=== PATIENT | female | born 1965 | race Caucasian/White ===

== ENCOUNTER 2017-12-09 07:27 | Emergency (ER) | payer BC, OTHER ==
--- OUTSIDE RECORDS SUMMARY | 2017-12-09 07:30 | XMS REPORT | Clinical Summary ---
:1965 Author Organization [facility] Address [address] [place] [address] Phone Care Team Providers Name Role Phone Unavailable Primary Care Provider Unavailable Allergies Active Allergy Reactions Severity Noted Date Comments Tramadol Nausea And Vomiting 08/23/2016 Current Medications Prescription Sig. Disp. Refills Start Date End Date Status levothyroxine Take 75 mcg by Active (SYNTHROID, mouth Every LEVOTHROID) 75 MCG morning on an tablet empty stomach. calcitriol Take 0.25 mcg Active (ROCALTROL) 0.25 MCG by mouth 2 capsule (two) times daily. sertraline (ZOLOFT) Take 25 mg by Active 25 MG tablet mouth daily. furosemide (LASIX) 40 Take 40 mg by Active MG tablet mouth daily. amLODIPine (NORVASC) Take 10 mg by 11/10/2017 Discontinued 10 MG tablet mouth daily. calcium Take 2 tablets 11/10/2017 Discontinued carbonate-vitamin D3 by mouth daily. (CALCIUM-VITAMIN D) 500 mg(1,250mg) -200 unit per tablet ALPRAZolam (XANAX) Take 0.25 mg by 11/10/2017 Discontinued 0.25 MG tablet mouth as needed for Sleep or Anxiety. b complex vitamins Take 1 tablet 11/10/2017 Discontinued tablet by mouth daily. Active Problems Patient Care Coordination Note WRAPPER HAND- Dr. 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 ESRD (end stage renal disease) ([facility]) 11/10/2017 Patient awaiting renal transplant 11/10/2017 Chronic kidney disease, stage 5 ([facility]) 08/23/2016 Pre-transplant evaluation for chronic kidney disease 08/23/2016 Essential hypertension 08/23/2016 Hyperparathyroidism ([facility]) 08/23/2016 S/P parathyroidectomy (HCC) 08/23/2016 Recurrent UTI 08/23/2016 Current smoker 10/22/2014 Overview: SNOMED/[place] [id number] Hyperparathyroidism, unspecified (HCC) 10/21/2014 Encounters Date Type Specialty Care Team Description 11/10/2017 Orders Only Transplant Naif, Patient awaiting renal Hepatology Bhamidipati transplant MD Roger 11/10/2017 Evaluation Transplant Naif, Pre-transplant Bhamidipati evaluation for chronic MD Roger kidney disease (Primary Dx);Patient awaiting renal transplant;ESRD (end stage renal disease) (HCC);Hyperparathyroidi sm (HCC);S/P parathyroidectomy (HCC);Recurrent UTI;Secondary hypertension due to renal disease 10/21/2017 Orders Only Lab O'Tony, Patient awaiting renal Marii Bowen MD transplant 09/22/2017 Orders Only Lab O'Tony, Patient awaiting renal Marii Bowen MD transplant 09/21/2017 Documentation Transplant MelaraSaharaiam 09/01/2017 Abstract Transplant Melara, Meriam 07/21/2017 Orders Only Lab Patient awaiting renal transplant 05/27/2017 Orders Only Lab O'Tony, Patient awaiting renal Marii Bowen MD transplant 04/29/2017 Orders Only Lab O'Tony, Patient awaiting renal Marii Bowen MD transplant 04/21/2017 Orders Only Transplant Maria Esther Branham RN Patient awaiting renal transplant (Primary Dx) 03/31/2017 Orders Only Lab Naif, Patient awaiting renal Bhamidipati transplant (Primary Dx) MD Roger 02/23/2017 Orders Only Lab Naif, Awaiting organ Bhamidipati transplant (Primary Dx) MD Roger 01/06/2017 [facility] Charge Visit Transplant Bari Disla MD Provider, [facility] Registry Generic 01/05/2017 Documentation Transplant Trevon Melara 12/31/2016 Documentation Transplant Katia Davidson RN 12/31/2016 Abstract Transplant Nohemi Pastrana RN 12/28/2016 Telephone Transplant Nohemi Pastrana RN 12/22/2016 Ancillary Orders Lab Bari Disla MD 12/22/2016 Ancillary Orders Lab Bari Disla MD 12/22/2016 Orders Only Transplant Nohemi Pastrana RN Pre-transplant evaluation for chronic kidney disease (Primary Dx);Anemia of renal disease 12/08/2016 Abstract Transplant Viviana Vaughan after 12/08/2016 Family History Medical History Relation Name Comments Hypertension Brother Cancer Brother Testicular - cured Cancer Father Bladder - in remission Hypertension Father Heart attack Maternal Grandmother Breast cancer Mother from it Relation Name Status Comments Brother Alive Brother Brother Father Alive Maternal Grandmother Mother Social History Tobacco Use Types Packs/Day Years Used Date Current Every Day Smoker Cigarettes 1 30 Smokeless Tobacco: Never Used Tobacco Cessation: Counseling Given: Yes Alcohol Use Drinks/Week oz/Week Comments No Sex Assigned at Date Recorded Not on file Last Filed Vital Signs Vital Sign Reading Time Taken Blood Pressure 153/83 11/10/2017 12:16 PM CDT Pulse 64 11/10/2017 12:16 PM CDT Temperature 36.4 C (97.5 F) 11/10/2017 12:16 PM CDT Respiratory Rate 18 11/10/2017 12:16 PM CDT Oxygen Saturation - - Inhaled Oxygen Concentration - - Weight 89.6 kg (197 lb 8 oz) 11/10/2017 12:16 PM CDT Height 166.5 cm (5' 5.55") 11/10/2017 12:16 PM CDT Body Mass Index 32.32 11/10/2017 12:16 PM CDT Plan of Treatment Health Maintenance Due Date Last Done Comments INFLUENZA VACCINE 01/16/2018 Results Flow PRA Class II (11/10/2017 10:43 AM)Only the most recent of6 resultswithin the time period is included. Component Value Ref Range Flow Class II Percent Positive 16 Flow Class Report Comments Specimen Performing Laboratory Blood [facility] HLA TESTING [facility] [address], : [id number], CLIA#[id number] CAP#[id number] [facility] [address] Narrative Disclaimer: This test was developed and its performance characteristics determined by the [facility] Laboratory. It has not been cleared or approved by the U.S. Food and Drug Administration. The FDA has determined that such clearance or approval is not necessary. This test is used for clinical purposes. It should not be regarded as investigational or for research. This laboratory is certified under the Clinical Laboratory Improvement Amendments of 1988 (CLIA-88) as qualified to perform high complexity clinical laboratory testing. Flow PRA Class I (11/10/2017 10:43 AM)Only the most recent of6 resultswithin the time period is included. Component Value Ref Range Flow Class I Percent Positive 0 Flow Class Report Comments Specimen Performing Laboratory Blood [facility] HLA TESTING [place], [place]: [id number], CLIA#[id number] CAP#[id number] [place] [address] Narrative Disclaimer: This test was developed and its performance characteristics determined by the [facility] Laboratory. It has not been cleared or approved by the U.S. Food and Drug Administration. The FDA has determined that such clearance or approval is not necessary. This test is used for clinical purposes. It should not be regarded as investigational or for research. This laboratory is certified under the Clinical Laboratory Improvement Amendments of 1988 (CLIA-88) as qualified to perform high complexity clinical laboratory testing. AB Specificity Class II (11/10/2017 10:43 AM)Only the most recent of9 resultswithin the time period is included. Component Value Ref Range AB Specificity Class II DR:4 AB Specificity Titr Class Report MFIs > 4000 Specimen Performing Laboratory Blood [facility] HLA TESTING [place], [place]: [id number], CLIA#[id number] CAP#[id number] [place] [address] Narrative Disclaimer: This test was developed and its performance characteristics determined by the [facility] Laboratory. It has not been cleared or approved by the U.S. Food and Drug Administration. The FDA has determined that such clearance or approval is not necessary. This test is used for clinical purposes. It should not be regarded as investigational or for research. This laboratory is certified under the Clinical Laboratory Improvement Amendments of 1988 (CLIA-88) as qualified to perform high complexity clinical laboratory testing. AB Specificity Class I (07/21/2017 2:17 PM)Only the most recent of5 resultswithin the time period is included. Component Value Ref Range AB Specificity Class I NO CLASS I ANTIBODY DETECTED WITH MFIs > 4000 AB Specificity Titr Class Report Specimen Performing Laboratory Blood [facility] HLA TESTING [place], [place]: [id number], CLIA#[id number] CAP#[id number] [place] [address] Flow PRA Class I and II (03/31/2017 10:23 AM)Only the most recent of2 resultswithin the time period is included. Component Value Ref Range Date of Serum 014564 Serum# [id number] Flow PRA Class I and II See Scanned Report Specimen Performing Laboratory Blood [facility] IMMUNE EVALUATION LAB [facility] [address], [place]:[address] [address] Occult blood, stool (12/23/2016 1:23 AM)Only the most recent of2 resultswithin the time period is included. Component Value Ref Range Occult blood Negative Negative Specimen Performing Laboratory Stool [facility] [address] [address] after 12/08/2016
--- OUTSIDE RECORDS SUMMARY | 2017-12-09 07:30 | XMS REPORT ---
:1965 Author Organization [facility] Address [address] [place] [address] [address]. [address] [place] [address] Care Team Providers Name Role Phone ADWOA CLARKE Unavailable Unavailable Problems This patient has no known problems. Allergies, Adverse Reactions, Alerts This patient has no known allergies or adverse reactions. Medications This patient has no known medications. Results Test Description Test Time Test Comments Text Results Atomic Results Result Comments FLOW PRA CLASS I AND II 2017-04-08 09:48:00 Test Item Value Reference Range Comments DATE OF SERUM (BEAKER) (test iuwk=8551) [id number] SERUM # (BEAKER) (test ebzy=9051) [id number] FLOW PRA CLASS I AND II (test utli=3129) See Scanned Report AB SPECIFICITY CLASS [id number] 07:35:00 Test Item Value Reference Range Comments DATE OF SERUM (BEAKER) (test btbb=2622) [id number] SERUM # (BEAKER) (test ndzf=1346) [id number] AB SPECIFICITY CLASS I (BEAKER) (test dihy=9789) AB SPECIFICITY CLASS [id number] 07:35:00 Test Item Value Reference Range Comments DATE OF SERUM (BEAKER) (test tdut=2732) [id number] SERUM # (BEAKER) (test bozs=6220) [id number] AB SPECIFICITY CLASS II (BEAKER) (test See Scanned Report uwpl=2529) FLOW PRA CLASS I AND [id number] 11:13:00 Test Item Value Reference Range Comments DATE OF SERUM (BEAKER) (test jsyx=5534) [id number] SERUM # (BEAKER) (test ytee=2606) 359008 FLOW PRA CLASS I AND II (test nlvf=8029) See Scanned Report AB SPECIFICITY CLASS [id number] 11:57:00 Test Item Value Reference Range Comments DATE OF SERUM (BEAKER) (test rgwm=2458) [id number] SERUM # (BEAKER) (test cyvj=6624) [id number] AB SPECIFICITY CLASS II (BEAKER) (test See Scanned Report hfdb=4745) AB SPECIFICITY CLASS [id number] 11:57:00 Test Item Value Reference Range Comments DATE OF SERUM (BEAKER) (test iyjh=4374) [id number] SERUM # (BEAKER) (test dkde=6018) 434437 AB SPECIFICITY CLASS I (BEAKER) (test jemz=4483) OCCULT BLOOD, [id number] 01:23:00 Test Item Value Reference Range Comments FECAL OCCULT BLOOD (BEAKER) (test xuce=015) Negative Negative OCCULT BLOOD, [id number] 01:22:00 Test Item Value Reference Range Comments FECAL OCCULT BLOOD (BEAKER) (test gpho=024) Negative Negative FLOW PRA CLASS I AND [id number] 22:58:00 Test Item Value Reference Range Comments DATE OF SERUM (BEAKER) (test zlvk=5425) 873608 SERUM # (BEAKER) (test txkx=9563) [id number] FLOW PRA CLASS I AND II (test wiqo=8956) See Scanned Report HLA [id number] 20:21:00 Test Item Value Reference Range Comments HLA RESULT (BEAKER) (test usrs=2135) See Scanned Report HLA-A AG1 (BEAKER) (test oktc=1221) HLA-A AG2 (BEAKER) (test rnki=0990) HLA-B AG1 (BEAKER) (test wkrz=0388) HLA-B AG2 (BEAKER) (test kbkd=7923) HLA-C AG1 (BEAKER) (test vytv=5422) HLA-C AG2 (BEAKER) (test zppt=8042) HLA-DR AG1 (BEAKER) (test pfdd=9031) HLA-DR AG2 (BEAKER) (test vrir=9136) HLA-DQ AG1 (BEAKER) (test qjdw=0207) HLA-DQ AG2 (BEAKER) (test vwgo=0584) HLA-DRW (BEAKER) (test aveh=0081) VARICELLA ZOSTER ANTIBODY, [id number] 14:57:00 Test Item Value Reference Range Comments VARICELLA ZOSTER IGG (AL) (BEAKER) (test chvz=5732) 2.0 Al VARICELLA ZOSTER RESULT INTERPRETATIONS: <=0.8 Al Nonreactive: Presumed non-immune to VZV 0.9-1.0 Al Equivocal >=1.1 Al Reactive: Presumed immune to VZVCYTOMEGALOVIRUS ANTIBODY, [id number] 14:54:00 Test Item Value Reference Range Comments CYTOMEGALOVIRUS IGG ANTIBODY (BEAKER) (test Positive fsav=622) CYTOMEGALOVIRUS ANTIBODY, [id number] 14:54:00 Test Item Value Reference Range Comments CYTOMEGALOVIRUS IGM ANTIBODY (BEAKER) (test Negative sqbo=813) EBV-VCA ANTIBODY, [id number] 14:54:00 Test Item Value Reference Range Comments [place] VCA IGG (BEAKER) (test fmrl=422) Positive EBV-VCA ANTIBODY, [id number] 14:54:00 Test Item Value Reference Range Comments [place] VCA IGM (BEAKER) (test gpaz=379) Negative [id number] 12:57:00 Test Item Value Reference Range Comments RPR SCREEN (BEAKER) (test tkoy=725) Nonreactive Nonreactive URINE [id number] 12:18:00 Test Item Value Reference Range Comments CULTURE (BEAKER) (test aaga=3171) No growth HEMOGLOBIN [id number] 11:58:00 Test Item Value Reference Range Comments HEMOGLOBIN A1C (BEAKER) (test qlhs=783) 5.2 % 4.3-6.1 HEPATITIS B SURFACE [id number] 10:42:00 Test Item Value Reference Range Comments HEPATITIS B SURFACE ANTIBODY (BEAKER) (test < mIU/mL <8.0 iasn=458) HEPATITIS B SURFACE [id number] 10:38:00 Test Item Value Reference Range Comments HEPATITIS B SURFACE ANTIGEN (2) (BEAKER) (test Nonreactive Nonreactive tied=7859) HEPATITIS B CORE ANTIBODY, [id number] 10:38:00 Test Item Value Reference Range Comments HEPATITIS B CORE IGM ANTIBODY (BEAKER) (test Nonreactive Nonreactive rmeb=243) HEPATITIS C [id number] 10:38:00 Test Item Value Reference Range Comments HEPATITIS C ANTIBODY (BEAKER) (test cuge=488) Nonreactive Nonreactive HIV-1 ANTIGEN WITH HIV-1/2 [id number] 10:38:00 Test Item Value Reference Range Comments HIV-1 ANTIGEN WITH HIV 1\T\2 ANTIBODY (2) Nonreactive Nonreactive (BEAKER) (test akga=4970) COMPREHENSIVE METABOLIC [id number] 10:32:00 Test Item Value Reference Range Comments TOTAL PROTEIN (BEAKER) 7.9 gm/dL 6.0-8.3 (test yxdv=744) ALBUMIN (BEAKER) (test 4.1 g/dL 3.5-5.0 wyxr=7983) ALKALINE PHOSPHATASE 70 U/L 40-150 (BEAKER) (test asaj=353) BILIRUBIN TOTAL (BEAKER) 0.5 mg/dL 0.2-1.2 (test txsi=622) SODIUM (BEAKER) (test 139 meq/L 136-145 clwe=508) POTASSIUM (BEAKER) (test 3.9 meq/L 3.5-5.1 cbnc=834) CHLORIDE (BEAKER) (test 101 meq/L 98-107 ylum=648) CO2 (BEAKER) (test 26 meq/L 22-29 ssac=849) BLOOD UREA NITROGEN 21 mg/dL 7-21 (BEAKER) (test kyhc=072) CREATININE (BEAKER) (test 3.93 mg/dL 0.57-1.25 cyhy=983) GLUCOSE RANDOM (BEAKER) 85 mg/dL 70-105 (test rido=012) CALCIUM (BEAKER) (test 9.3 mg/dL 8.4-10.2 zirb=488) AST (SGOT) (BEAKER) (test 22 U/L 5-34 drcq=441) ALT (SGPT) (BEAKER) (test 14 U/L 6-55 xprm=791) EGFR (BEAKER) (test 12 mL/min/1.73 sq m ESTIMATED GFR IS NOT puax=1182) ACCURATE CREATININE CLEARANCE IN PREDICTING GLOMERULAR FILTRATION RATE. ESTIMATED GFR IS NOT APPLICABLE FOR DIALYSIS PATIENTS. URINALYSIS W/ [id number] 10:22:00 Test Item Value Reference Range Comments COLOR (BEAKER) (test mahf=996) Light Yellow CLARITY (BEAKER) (test glfo=536) Clear SPECIFIC GRAVITY UA (BEAKER) (test sqlf=580) 1.003 1.001-1.035 PH UA (BEAKER) (test jahr=149) 7.5 5.0-8.0 PROTEIN UA (BEAKER) (test plzv=502) 30 mg/dL Negative GLUCOSE UA (BEAKER) (test hdra=778) Negative Negative KETONES UA (BEAKER) (test qnie=116) Negative Negative BILIRUBIN UA (BEAKER) (test jmip=588) Negative Negative BLOOD UA (BEAKER) (test hszq=412) Negative Negative NITRITE UA (BEAKER) (test pkzc=902) Negative Negative LEUKOCYTE ESTERASE UA (BEAKER) (test tsrt=647) Negative Negative UROBILINOGEN UA (BEAKER) (test kzne=152) 0.2 mg/dL 0.2-1.0 RBC UA (BEAKER) (test ehlu=498) 0 /HPF WBC UA (BEAKER) (test mbob=450) < /HPF MUCUS (BEAKER) (test iarw=6941) Rare SQUAMOUS EPITHELIAL (BEAKER) (test cwke=071) < /HPF SOURCE(BEAKER) (test zido=1530) URIC [id number] 10:18:00 Test Item Value Reference Range Comments URIC ACID (BEAKER) (test cmeu=375) 4.0 mg/dL 2.6-7.2 [id number] 10:18:00 Test Item Value Reference Range Comments PHOSPHORUS (BEAKER) (test gjur=997) 4.1 mg/dL 2.3-4.7 LIPID [id number] 10:18:00 Test Item Value Reference Range Comments TRIGLYCERIDES (BEAKER) (test czor=638) 128 mg/dL CHOLESTEROL (BEAKER) (test oibc=097) 164 mg/dL HDL CHOLESTEROL (BEAKER) (test mnus=121) 52 mg/dL LDL CHOLESTEROL CALCULATED (BEAKER) (test 86 mg/dL vqas=383) Triglyceride Reference Range: Low Risk <150 Borderline 150- 199 High Risk 200-499 Very High Risk >=500Cholesterol Reference Range: Low Risk <200 Borderline 200-239 High Risk > 240HDL Cholesterol Reference Range: Low Risk >=60 High Risk <40LDL Cholesterol Reference Range: Optimal <100 Near Optimal 100-129 Borderline 130-159 High 160-189 Very High >=190GAMMA GLUTAMYL TRANSFERASE (GGT)2016-11-24 10:18:00 Test Item Value Reference Range Comments GAMMA GLUTAMYL TRANSFERASE (BEAKER) (test tdqo=245) 18 U/L 9-64 LACTATE DEHYDROGENASE (LDH)2016-11-24 10:18:00 Test Item Value Reference Range Comments LACTATE DEHYDROGENASE (BEAKER) (test nfck=924) 269 U/L 125-220 PTH, [id number] 10:17:00 Test Item Value Reference Range Comments PARATHYROID HORMONE INTACT (BEAKER) (test 4.5 pg/mL 8.5-72.5 xlkr=558) Effective 03/05/2014: Reference Range ChangeNew: 8.5-72.5 Previous: 15.0- 90.0PT/[id number] 10:05:00 Test Item Value Reference Range Comments PROTIME (BEAKER) (test dwtv=803) 12.9 seconds 11.7-14.7 INR (BEAKER) (test bjzy=618) 1.0 <=5.9 PARTIAL THROMBOPLASTIN TIME (BEAKER) (test 34.2 seconds 22.5-36.0 dhas=629) RECOMMENDED COUMADIN/WARFARIN INR THERAPY RANGESSTANDARD DOSE: 2.0 - 3.0 Includes: PROPHYLAXIS forvenous thrombosis, systemic embolization; TREATMENT for venous thrombosis and/or pulmonary embolus.HIGH RISK: Target INR is 2.5-3.5 for patients with mechanical heart valves.CBC W/PLT COUNT & AUTO [id number] 09:56:00 Test Item Value Reference Range Comments WHITE BLOOD CELL COUNT (BEAKER) (test looy=045) 5.9 K/ L 3.5-10.5 RED BLOOD CELL COUNT (BEAKER) (test fpqt=304) 3.42 M/ L 3.93-5.22 HEMOGLOBIN (BEAKER) (test sbiw=653) 11.8 GM/DL 11.2-15.7 HEMATOCRIT (BEAKER) (test lifi=166) 33.7 % 34.1-44.9 MEAN CORPUSCULAR VOLUME (BEAKER) (test hobk=743) 98.5 fL 79.4-94.8 MEAN CORPUSCULAR HEMOGLOBIN (BEAKER) (test 34.5 pg 25.6-32.2 mgtv=979) MEAN CORPUSCULAR HEMOGLOBIN CONC (BEAKER) (test 35.0 GM/DL 32.2-35.5 uvou=386) RED CELL DISTRIBUTION WIDTH (BEAKER) (test 14.5 % 11.7-14.4 rwbx=763) PLATELET COUNT (BEAKER) (test heem=131) 175 K/CU MM 150-450 MEAN PLATELET VOLUME (BEAKER) (test cioh=481) 10.3 fL 9.4-12.3 NUCLEATED RED BLOOD CELLS (BEAKER) (test 0 /100 WBC 0-0 obks=453) NEUTROPHILS RELATIVE PERCENT (BEAKER) (test 63 % lqlf=171) LYMPHOCYTES RELATIVE PERCENT (BEAKER) (test 27 % ftpl=950) MONOCYTES RELATIVE PERCENT (BEAKER) (test 8 % vcvk=130) EOSINOPHILS RELATIVE PERCENT (BEAKER) (test 2 % qwsd=319) BASOPHILS RELATIVE PERCENT (BEAKER) (test 1 % xnmq=851) NEUTROPHILS ABSOLUTE COUNT (BEAKER) (test 3.68 K/ L 1.56-6.13 xugg=438) LYMPHOCYTES ABSOLUTE COUNT (BEAKER) (test 1.55 K/ L 1.18-3.74 bvqq=161) MONOCYTES ABSOLUTE COUNT (BEAKER) (test 0.47 K/ L 0.24-0.36 kwpu=615) EOSINOPHILS ABSOLUTE COUNT (BEAKER) (test 0.10 K/ L 0.04-0.36 nbda=253) BASOPHILS ABSOLUTE COUNT (BEAKER) (test 0.03 K/ L 0.01-0.08 oqtg=105) IMMATURE GRANULOCYTES-RELATIVE PERCENT (BEAKER) 0 % 0-1 (test tcrm=9904)
--- NOTE | 2017-12-09 07:57 | EDPHYS ---
Physician Documentation [facility] Name: Adrianne Bond Age: 52 yrs Sex: Female : 1965 Arrival Date: 12/09/2017 Time: 07:32 Bed 2 Private MD: Lemuel Wisdom ED Physician Chris Estrada HPI: 12/09 07:52 This 52 yrs old Female presents to ER via Ambulatory with complaints of kb Abscess. 07:52 The patient presents with an abscess of the mons pubis. Description: erythematous, kb swollen, warm. Onset: The symptoms/episode began/occurred 5 day(s) ago. Possible cause(s): unknown. Associated signs and symptoms: Pertinent positives: erythema, swelling, Pertinent negatives: discharge, drainage, foreign body sensation, fever, headache, nausea, shortness of breath, vomiting. Modifying factors: the symptoms are alleviated by nothing, the symptoms are aggravated by pressure, touching. Severity of symptoms: At their worst the symptoms were moderate, in the emergency department the symptoms are unchanged. The patient has not experienced similar symptoms in the past. The patient has not recently seen a physician. 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 - Social history:: Smoking status: Patient uses tobacco products, smokes one pack cigarettes per day. - Ebola Screening: : Patient negative for fever greater than or equal to 101.5 degrees Fahrenheit, and additional compatible Ebola Virus Disease symptoms Patient denies exposure to infectious person Patient denies travel to an Ebola-affected area in the 21 days before illness onset No symptoms or risks identified at this time. ROS: 07:52 Constitutional: Negative for fever, chills, and weight loss, Cardiovascular: Negative kb for chest pain, palpitations, and edema, Respiratory: Negative for shortness of breath, cough, wheezing, and pleuritic chest pain, Abdomen/GI: Negative for abdominal pain, nausea, vomiting, diarrhea, and constipation, Back: Negative for injury and pain, MS/Extremity: Negative for injury and deformity, Neuro: Negative for headache, weakness, numbness, tingling, and seizure. 07:52 Skin: Positive for abscess, erythema, swelling, of the mons pubis. Exam: 07:52 Constitutional: This is a well developed, well nourished patient who is awake, alert, kb and in no acute distress. Head/Face: Normocephalic, atraumatic. Chest/axilla: Normal chest wall appearance and motion. Nontender with no deformity. No lesions are appreciated. Cardiovascular: Regular rate and rhythm with a normal S1 and S2. No gallops, murmurs, or rubs. Normal PMI, no JVD. No pulse deficits. Respiratory: Lungs have equal breath sounds bilaterally, clear to auscultation and percussion. No rales, rhonchi or wheezes noted. No increased work of breathing, no retractions or nasal flaring. Abdomen/GI: Soft, non-tender, with normal bowel sounds. No distension or tympany. No guarding or rebound. No evidence of tenderness throughout. MS/ Extremity: Pulses equal, no cyanosis. Neurovascular intact. Full, normal range of motion. Neuro: Awake and alert, GCS 15, oriented to person, place, time, and situation. Cranial nerves II-XII grossly intact. Motor strength 5/5 in all extremities. Sensory grossly intact. Cerebellar exam normal. Normal gait. 07:52 Skin: abscess, that is small, of the mons pubis, with induration. Vital Signs: 07:46 BP 117 / 86; Pulse 77; Resp 16; Pulse Ox 100% on R/A; Weight 90.72 kg; Height 5 ft. 6 ch in. (167.64 cm); Pain 8/10; 08:08 BP 120 / 86; Pulse 74; Resp 16; Temp 98.2; Pulse Ox 99% on R/A; Pain 8/10; ch 07:46 Body Mass Index 32.28 (90.72 kg, 167.64 cm) ch MDM: 07:52 Patient medically screened. kb 07:52 Data reviewed: vital signs, nurses notes. Data interpreted: Pulse oximetry: on room air kb is 100 %. Interpretation: normal. Counseling: I had a detailed discussion with the patient and/or guardian regarding: the historical points, exam findings, and any diagnostic results supporting the discharge/admit diagnosis, the need for outpatient follow up, a family practitioner, a general surgeon, to return to the emergency department if symptoms worsen or persist or if there are any questions or concerns that arise at home. 07:57 ED course: Educated to return for worsening symptoms and/or for I\T\D if abscess becomes kb fluctuant. Verbal understanding received. . Administered Medications: 08:01 Drug: Bactrim (160 mg-800 mg (DS) 1 tablet Route: PO; 08:09 Follow up: Response: No adverse reaction; Marked relief of symptoms 08:01 Drug: KeFLEX 500 mg Route: PO; 08:09 Follow up: Response: No adverse reaction Disposition: 12/09/17 07:57 Discharged to Home. Impression: Cutaneous abscess of groin. - Condition is Stable. - Discharge Instructions: Skin Abscess, [id number]. - Prescriptions for Keflex 500 mg Oral Capsule - take 1 capsule by ORAL route every 8 hours for 10 days; 30 capsule. Bactrim DS 800- 160 mg Oral Tablet - take 1 tablet by ORAL route every 12 hours for 10 days; 20 tablet. - Medication Reconciliation Form, Thank You Letter, Antibiotic Education, Prescription Opioid Use form. - Follow up: Emergency Department; When: As needed; Reason: Worsening of condition. Follow up: Lemuel Wisdom MD; When: 2 - 3 days; Reason: Recheck today's complaints, Continuance of care, Re-evaluation by your physician. Addendum: 12/10/2017 08:16 Co-signature as Attending Physician, Chris Estrada MD I agree with the assessment and w a plan of care. Signatures: Leah Link, MAIKEL-C MAIKEL-Debbie Teresa, Chris Champion RN, ch, MD MD wa Corrections: (The following items were deleted from the chart) 12/09 08:09 07:57 12/09/2017 07:57 Discharged to Home. Impression: Cutaneous abscess of groin. ch Condition is Stable. Forms are Medication Reconciliation Form, Thank You Letter, Antibiotic Education, Prescription Opioid Use. Follow up: Emergency Department; When: As needed; Reason: Worsening of condition. Follow up: Lemuel Wisdom; When: 2 - 3 days; Reason: Recheck today's complaints, Continuance of care, Re-evaluation by your physician. kb
--- NOTE | 2017-12-09 07:57 | ER ---
Nurse's Notes [facility] Name: Adrianne Bond Age: 52 yrs Sex: Female : 1965 Arrival Date: 12/09/2017 Time: 07:32 Bed 2 Private MD: Lemuel Wisdom Diagnosis: Cutaneous abscess of groin Presentation: 12/09 07:42 Presenting complaint: Patient states: quarter sized boil to my L upper labia since tuesday. Transition of care: patient was not received from another setting of care. Onset of symptoms was December 05, 2017. Risk Assessment: Do you want to hurt yourself or someone else? Patient reports no desire to harm self or others. Initial Sepsis Screen: Does the patient meet any 2 criteria? No. Patient's initial sepsis screen is negative. Does the patient have a suspected source of infection? No. Patient's initial sepsis screen is negative. Care prior to arrival: None. 07:42 Method Of Arrival: Ambulatory 07:42 Acuity: TONO 4 Triage Assessment: 07:46 General: Appears in no apparent distress. comfortable, Behavior is calm, cooperative, appropriate for age. Pain: Complains of pain in mons pubis and left labia majora Pain currently is 8 out of 10 on a pain scale. Neuro: No deficits noted. Respiratory: No deficits noted. Derm: Skin is pink, warm \T\ dry. Abscess located on mons pubis is quarter sized, has no drainage, is hot to touch, is red, is raised. Musculoskeletal: No signs and/or symptoms reported regarding the musculoskeletal system. 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 - Social history:: Smoking status: Patient uses tobacco products, smokes one pack cigarettes per day. - Ebola Screening: : Patient negative for fever greater than or equal to 101.5 degrees Fahrenheit, and additional compatible Ebola Virus Disease symptoms Patient denies exposure to infectious person Patient denies travel to an Ebola-affected area in the 21 days before illness onset No symptoms or risks identified at this time. Screenin:48 Abuse screen: Denies threats or abuse. Denies injuries from another. Nutritional screening: No deficits noted. Tuberculosis screening: No symptoms or risk factors identified. Fall Risk None identified. Assessment: 07:48 Reassessment: Patient appears in no apparent distress at this time. Patient and/or family updated on plan of care and expected duration. Pain level reassessed. Patient is alert, oriented x 3, equal unlabored respirations, skin warm/dry/pink. 08:06 Reassessment: Patient appears in no apparent distress at this time. No changes from previously documented assessment. Patient and/or family updated on plan of care and expected duration. Pain level reassessed. Patient is alert, oriented x 3, equal unlabored respirations, skin warm/dry/pink. 08:08 Reassessment: Patient appears in no apparent distress at this time. No changes from previously documented assessment. Patient and/or family updated on plan of care and expected duration. Pain level reassessed. Patient is alert, oriented x 3, equal unlabored respirations, skin warm/dry/pink. Vital Signs: 07:46 BP 117 / 86; Pulse 77; Resp 16; Pulse Ox 100% on R/A; Weight 90.72 kg; Height 5 ft. 6 in. (167.64 cm); Pain 8/10; 08:08 BP 120 / 86; Pulse 74; Resp 16; Temp 98.2; Pulse Ox 99% on R/A; Pain 8/10; ch 07:46 Body Mass Index 32.28 (90.72 kg, 167.64 cm) ED Course: 07:32 Patient arrived in ED. sb2 07:32 Lemuel Wisdom MD is Private Physician. sb2 07:42 Debbie Matthews RN is Primary Nurse. ch 07:43 Triage completed. 07:46 Arm band placed on left wrist. Patient placed in an exam room, on a stretcher. ch 07:48 Patient has correct armband on for positive identification. Placed in gown. Bed in low ch position. Call light in reach. Side rails up X 1. Pulse ox on. NIBP on. 07:48 Patient did not have IV access during this emergency room visit. 07:52 Leah Link FNP-C is [facility]. kb 07:52 Chris Estrada MD is Attending Physician. kb 07:56 Lemuel Wisdom MD is Referral Physician. kb 08:08 No apparent distress. Resting quietly. ch 08:08 No provider procedures requiring assistance completed. ch Administered Medications: 08:01 Drug: Bactrim (160 mg-800 mg (DS) 1 tablet Route: PO; ch 08:09 Follow up: Response: No adverse reaction; Marked relief of symptoms ch 08:01 Drug: KeFLEX 500 mg Route: PO; ch 08:09 Follow up: Response: No adverse reaction ch Outcome: 07:57 Discharge ordered by MD. kb 08:08 Discharged to home ambulatory. 08:08 Condition: stable 08:08 Discharge instructions given to patient, Instructed on discharge instructions, follow up and referral plans. medication usage, Demonstrated understanding of instructions, follow-up care, medications, Prescriptions given X 2. 08:09 Patient left the ED. Signatures: Leah Link FNP-C FNP-Ckb Hammond, Christina, RN RN Sara Coronado2
[2017-12-09] MEDS ORDERED: CEPHALEXIN 250 MG CAP ONE (08:07)
[2017-12-09] MEDS ORDERED: SMZ./TMP. 800/160 MG TABLET ONE (08:07)
[2017-12-09 08:23] VITALS: BP 120/86; TEMP 98.2; O2SAT 99
== END 2017-12-09 08:09 | disposition home or self-care (01) ==
LOC: ER 07:27
DX: L02.215 Cutaneous abscess of perineum (principal); E03.9 Hypothyroidism, unspecified; I12.0 Hypertensive chronic kidney disease with stage 5 chronic kidney disease or end stage renal disease; N18.6 End stage renal disease; Z99.2 Dependence on renal dialysis; F17.210 Nicotine dependence, cigarettes, uncomplicated
CPT/HCPCS: 99283

== ENCOUNTER 2018-01-16 09:17 | Emergency (ER) | payer OTHER ==
--- OUTSIDE RECORDS SUMMARY | 2018-01-16 09:21 | XMS REPORT ---
:1965 [facility] Address [address] [place] [address] [address] [place] [address] Care Team Providers Name Role Phone ADWOA [...] Range Comments DATE OF SERUM (BEAKER) (test lypf=4866) [id number] SERUM # (BEAKER) (test lttd=1274) [id number] FLOW PRA CLASS I AND II (test bfpz=4921) See Scanned Report AB SPECIFICITY CLASS [id number] 07:35:00 Test Item Value Reference Range Comments DATE OF SERUM (BEAKER) (test plbz=2717) [id number] SERUM # (BEAKER) (test nscp=5094) [id number] AB SPECIFICITY CLASS I (BEAKER) (test xmnf=2281) AB SPECIFICITY CLASS [id number] 07:35:00 Test Item Value Reference Range Comments DATE OF SERUM (BEAKER) (test dben=7018) [id number] SERUM # (BEAKER) (test mlkl=3534) [id number] AB SPECIFICITY CLASS II (BEAKER) (test See Scanned Report aagt=2013) FLOW PRA CLASS I AND [id number] 11:13:00 Test Item Value Reference Range Comments DATE OF SERUM (BEAKER) (test kzny=3709) [id number] SERUM # (BEAKER) (test tkbi=8775) [id number] FLOW PRA CLASS I AND II (test zjfl=7854) See Scanned Report AB SPECIFICITY CLASS [id number] 11:57:00 Test Item Value Reference Range Comments DATE OF SERUM (BEAKER) (test mswu=6553) [id number] SERUM # (BEAKER) (test cvmz=9454) [id number] AB SPECIFICITY CLASS II (BEAKER) (test See Scanned Report jomm=6378) AB SPECIFICITY CLASS [id number] 11:57:00 Test Item Value Reference Range Comments DATE OF SERUM (BEAKER) (test gehn=1877) [id number] SERUM # (BEAKER) (test wdew=6065) [id number] AB SPECIFICITY CLASS I (BEAKER) (test wmhi=7945) OCCULT BLOOD, [id number] 01:23:00 Test Item Value Reference Range Comments FECAL OCCULT BLOOD (BEAKER) (test rbbe=257) Negative Negative OCCULT BLOOD, [id number] 01:22:00 Test Item Value Reference Range Comments FECAL OCCULT BLOOD (BEAKER) (test dxol=146) Negative Negative FLOW PRA CLASS I AND [id number] 22:58:00 Test Item Value Reference Range Comments DATE OF SERUM (BEAKER) (test xhmk=1992) [id number] SERUM # (BEAKER) (test efwn=4517) [id number] FLOW PRA CLASS I AND II (test nczk=8841) See Scanned Report HLA [id number] 20:21:00 Test Item Value Reference Range Comments HLA RESULT (BEAKER) (test odre=2031) See Scanned Report HLA-A AG1 (BEAKER) (test dwub=8733) HLA-A AG2 (BEAKER) (test prhp=6471) HLA-B AG1 (BEAKER) (test afbm=0554) HLA-B AG2 (BEAKER) (test sevh=5144) HLA-C AG1 (BEAKER) (test wyob=7600) HLA-C AG2 (BEAKER) (test febb=1528) HLA-DR AG1 (BEAKER) (test seuk=7734) HLA-DR AG2 (BEAKER) (test bibr=7655) HLA-DQ AG1 (BEAKER) (test urto=0791) HLA-DQ AG2 (BEAKER) (test kcbs=5017) HLA-DRW (BEAKER) (test ettc=4864) VARICELLA ZOSTER ANTIBODY, [id number] 14:57:00 Test Item Value Reference Range Comments VARICELLA ZOSTER IGG (AL) (BEAKER) (test bvbf=5613) 2.0 Al VARICELLA ZOSTER RESULT INTERPRETATIONS: <=0.8 Al Nonreactive: Presumed non-immune to VZV 0.9-1.0 Al Equivocal >=1.1 Al Reactive: Presumed immune to VZVCYTOMEGALOVIRUS ANTIBODY, [id number] 14:54:00 Test Item Value Reference Range Comments CYTOMEGALOVIRUS IGG ANTIBODY (BEAKER) (test Positive zagp=733) CYTOMEGALOVIRUS ANTIBODY, [id number] 14:54:00 Test Item Value Reference Range Comments CYTOMEGALOVIRUS IGM ANTIBODY (BEAKER) (test Negative veae=577) EBV-VCA ANTIBODY, [id number] 14:54:00 Test Item Value Reference Range Comments [place] VCA IGG (BEAKER) (test xabd=069) Positive EBV-VCA ANTIBODY, [id number] 14:54:00 Test Item Value Reference Range Comments [place] VCA IGM (BEAKER) (test zksa=079) Negative [id number] 12:57:00 Test Item Value Reference Range Comments RPR SCREEN (BEAKER) (test wnqb=415) Nonreactive Nonreactive URINE [id number] 12:18:00 Test Item Value Reference Range Comments CULTURE (BEAKER) (test rnve=7098) No growth HEMOGLOBIN [id number] 11:58:00 Test Item Value Reference Range Comments HEMOGLOBIN A1C (BEAKER) (test data=417) 5.2 % 4.3-6.1 HEPATITIS B SURFACE [id number] 10:42:00 Test Item Value Reference Range Comments HEPATITIS B SURFACE ANTIBODY (BEAKER) (test < mIU/mL <8.0 wbrm=694) HEPATITIS B SURFACE [id number] 10:38:00 Test Item Value Reference Range Comments HEPATITIS B SURFACE ANTIGEN (2) (BEAKER) (test Nonreactive Nonreactive batz=1769) HEPATITIS B CORE ANTIBODY, [id number] 10:38:00 Test Item Value Reference Range Comments HEPATITIS B CORE IGM ANTIBODY (BEAKER) (test Nonreactive Nonreactive gnjd=224) HEPATITIS C [id number] 10:38:00 Test Item Value Reference Range Comments HEPATITIS C ANTIBODY (BEAKER) (test agtb=320) Nonreactive Nonreactive HIV-1 ANTIGEN WITH HIV-1/2 [id number] 10:38:00 Test Item Value Reference Range Comments HIV-1 ANTIGEN WITH HIV 1\T\2 ANTIBODY (2) Nonreactive Nonreactive (BEAKER) (test mkio=7548) COMPREHENSIVE METABOLIC [id number] 10:32:00 Test Item Value Reference Range Comments TOTAL PROTEIN (BEAKER) 7.9 gm/dL 6.0-8.3 (test furs=962) ALBUMIN (BEAKER) (test 4.1 g/dL 3.5-5.0 mdin=6759) ALKALINE PHOSPHATASE 70 U/L 40-150 (BEAKER) (test gnti=831) BILIRUBIN TOTAL (BEAKER) 0.5 mg/dL 0.2-1.2 (test rogs=546) SODIUM (BEAKER) (test 139 meq/L 136-145 giun=091) POTASSIUM (BEAKER) (test 3.9 meq/L 3.5-5.1 qtlq=148) CHLORIDE (BEAKER) (test 101 meq/L 98-107 zeqm=874) CO2 (BEAKER) (test 26 meq/L 22-29 vbgo=756) BLOOD UREA NITROGEN 21 mg/dL 7-21 (BEAKER) (test oaxu=098) CREATININE (BEAKER) (test 3.93 mg/dL 0.57-1.25 mbbv=240) GLUCOSE RANDOM (BEAKER) 85 mg/dL 70-105 (test pmcp=860) CALCIUM (BEAKER) (test 9.3 mg/dL 8.4-10.2 hafq=948) AST (SGOT) (BEAKER) (test 22 U/L 5-34 mjpp=664) ALT (SGPT) (BEAKER) (test 14 U/L 6-55 yzuo=080) EGFR (BEAKER) (test 12 mL/min/1.73 sq m ESTIMATED GFR IS NOT vanw=0321) ACCURATE CREATININE CLEARANCE IN PREDICTING GLOMERULAR FILTRATION RATE. ESTIMATED GFR IS NOT APPLICABLE FOR DIALYSIS PATIENTS. URINALYSIS W/ [id number] 10:22:00 Test Item Value Reference Range Comments COLOR (BEAKER) (test hrmq=197) Light Yellow CLARITY (BEAKER) (test wtzb=903) Clear SPECIFIC GRAVITY UA (BEAKER) (test knia=251) 1.003 1.001-1.035 PH UA (BEAKER) (test dpcx=913) 7.5 5.0-8.0 PROTEIN UA (BEAKER) (test hvkf=205) 30 mg/dL Negative GLUCOSE UA (BEAKER) (test uptg=116) Negative Negative KETONES UA (BEAKER) (test rzil=614) Negative Negative BILIRUBIN UA (BEAKER) (test vwfr=820) Negative Negative BLOOD UA (BEAKER) (test nrpy=776) Negative Negative NITRITE UA (BEAKER) (test vijv=309) Negative Negative LEUKOCYTE ESTERASE UA (BEAKER) (test jttd=412) Negative Negative UROBILINOGEN UA (BEAKER) (test gulq=293) 0.2 mg/dL 0.2-1.0 RBC UA (BEAKER) (test joka=884) 0 /HPF WBC UA (BEAKER) (test krub=784) < /HPF MUCUS (BEAKER) (test oksd=9899) Rare SQUAMOUS EPITHELIAL (BEAKER) (test gkjd=804) < /HPF SOURCE(BEAKER) (test inhm=5913) URIC [id number] 10:18:00 Test Item Value Reference Range Comments URIC ACID (BEAKER) (test oibi=981) 4.0 mg/dL 2.6-7.2 [id number] 10:18:00 Test Item Value Reference Range Comments PHOSPHORUS (BEAKER) (test evxr=821) 4.1 mg/dL 2.3-4.7 LIPID [id number] 10:18:00 Test Item Value Reference Range Comments TRIGLYCERIDES (BEAKER) (test aboo=985) 128 mg/dL CHOLESTEROL (BEAKER) (test ichp=146) 164 mg/dL HDL CHOLESTEROL (BEAKER) (test ulhn=116) 52 mg/dL LDL CHOLESTEROL CALCULATED (BEAKER) (test 86 mg/dL deqp=257) Triglyceride Reference Range: Low Risk <150 Borderline [...] Range Comments GAMMA GLUTAMYL TRANSFERASE (BEAKER) (test fooi=883) 18 U/L 9-64 LACTATE DEHYDROGENASE (LDH)[id number] 10:18:00 Test Item Value Reference Range Comments LACTATE DEHYDROGENASE (BEAKER) (test wknm=188) 269 U/L 125-220 PTH, [id number] 10:17:00 Test Item Value Reference Range Comments PARATHYROID HORMONE INTACT (BEAKER) (test 4.5 pg/mL 8.5-72.5 pnjs=097) Effective 03/05/2014: Reference Range ChangeNew: 8.5-72.5 Previous: 15.0- 90.0PT/[id number] 10:05:00 Test Item Value Reference Range Comments PROTIME (BEAKER) (test kplg=132) 12.9 seconds 11.7-14.7 INR (BEAKER) (test gfox=948) 1.0 <=5.9 PARTIAL THROMBOPLASTIN TIME (BEAKER) (test 34.2 seconds 22.5-36.0 tdhe=868) RECOMMENDED COUMADIN/WARFARIN INR THERAPY RANGESSTANDARD DOSE: 2.0 - 3.0 Includes: PROPHYLAXIS forvenous thrombosis, systemic embolization; TREATMENT for venous thrombosis and/or pulmonary embolus.HIGH RISK: Target INR is 2.5-3.5 for patients with mechanical heart valves.CBC W/PLT COUNT & AUTO [id number] 09:56:00 Test Item Value Reference Range Comments WHITE BLOOD CELL COUNT (BEAKER) (test ioed=115) 5.9 K/ L 3.5-10.5 RED BLOOD CELL COUNT (BEAKER) (test zwon=105) 3.42 M/ L 3.93-5.22 HEMOGLOBIN (BEAKER) (test kneo=778) 11.8 GM/DL 11.2-15.7 HEMATOCRIT (BEAKER) (test grjj=607) 33.7 % 34.1-44.9 MEAN CORPUSCULAR VOLUME (BEAKER) (test cgek=810) 98.5 fL 79.4-94.8 MEAN CORPUSCULAR HEMOGLOBIN (BEAKER) (test 34.5 pg 25.6-32.2 zcrs=454) MEAN CORPUSCULAR HEMOGLOBIN CONC (BEAKER) (test 35.0 GM/DL 32.2-35.5 efsu=493) RED CELL DISTRIBUTION WIDTH (BEAKER) (test 14.5 % 11.7-14.4 evyk=435) PLATELET COUNT (BEAKER) (test nuul=095) 175 K/CU MM 150-450 MEAN PLATELET VOLUME (BEAKER) (test jawj=608) 10.3 fL 9.4-12.3 NUCLEATED RED BLOOD CELLS (BEAKER) (test 0 /100 WBC 0-0 kjyw=927) NEUTROPHILS RELATIVE PERCENT (BEAKER) (test 63 % nhbw=897) LYMPHOCYTES RELATIVE PERCENT (BEAKER) (test 27 % ueta=382) MONOCYTES RELATIVE PERCENT (BEAKER) (test 8 % zxeb=606) EOSINOPHILS RELATIVE PERCENT (BEAKER) (test 2 % xkxd=582) BASOPHILS RELATIVE PERCENT (BEAKER) (test 1 % obcj=676) NEUTROPHILS ABSOLUTE COUNT (BEAKER) (test 3.68 K/ L 1.56-6.13 jpel=919) LYMPHOCYTES ABSOLUTE COUNT (BEAKER) (test 1.55 K/ L 1.18-3.74 xcqy=181) MONOCYTES ABSOLUTE COUNT (BEAKER) (test 0.47 K/ L 0.24-0.36 vuqe=110) EOSINOPHILS ABSOLUTE COUNT (BEAKER) (test 0.10 K/ L 0.04-0.36 jqmj=802) BASOPHILS ABSOLUTE COUNT (BEAKER) (test 0.03 K/ L 0.01-0.08 clad=823) IMMATURE GRANULOCYTES-RELATIVE PERCENT (BEAKER) 0 % 0-1 (test teqg=4459)
[2018-01-16 10:36] LABS: Absolute Lymphocytes (CBC) 1.5 K/uL (0.7-4.9); Absolute Monocytes 0.5 K/uL (0.1-1.3); Absolute Neutrophil 3.9 K/uL (1.8-8.0); Basophils % 0.7 % (0-1.3); Eosinophils % 1.9 % (0-4.4); Hematocrit 39.4 % (36.0-45.0); Lymphocytes % 24.2 % (15.3-44.8); MCH 35.2 pg (27.0-35.0); MCV 100.8 fL (80-100); MPV 8.9 fL (7.6-11.3); Monocytes % 7.7 % (3.3-12.3); RBC Red Blood Cell Count 3.91 M/uL (3.86-4.86)
[2018-01-16 10:55] LABS: ALT/SGPT 20 U/L (12-78); AST/SGOT 21 U/L (15-37); Albumin 3.6 g/dL (3.4-5.0); Alkaline Phosphatase 95 U/L (45-117); BUN Blood Urea Nitrogen 16 mg/dL (7-18); Bicarbonate 32 mmol/L (21-32); Bilirubin Direct 0.1 mg/dL (0-0.2); Bilirubin Total 0.4 mg/dL (0.2-1.0); Glucose Level 93 mg/dL (74-106); Lipase 255 U/L (73-393); Potassium 3.5 mmol/L (3.5-5.1); Protein, Total 8.6 g/dL (6.4-8.2); Sodium Level 138 mmol/L (136-145); Troponin (Emerg Dept Use Only) < 0.02 ng/mL (0.0-0.045)
--- NOTE | 2018-01-16 11:23 | ER ---
Nurse's Notes [facility] Name: Adrianne Bond Age: 52 yrs Sex: Female : 1965 Arrival Date: 01/16/2018 Time: 09:20 Bed 23 Private MD: Lemuel Wisdom Diagnosis: Epigastric pain Presentation: 01/16 09:32 Presenting complaint: Patient states: Sudden sharp epigastric pain that radiated to mid hb back that lasted approx 1 min. Pain began at end of HD 1 hr ago. Denies pain/SOB/nausea at this time. Transition of care: patient was not received from another setting of care. Onset of symptoms was January 16, 2018. Risk Assessment: Do you want to hurt yourself or someone else? Patient reports no desire to harm self or others. 09:32 Method Of Arrival: Ambulatory 09:32 Acuity: TONO 3 hb Historical: - Allergies: 09:35 tramadol; hb - Home Meds: 09:35 calcitriol 0.25 mcg Oral cap 1 cap once daily [Active]; DIALYSIS MWF [Active]; hb levothyroxine 75 mcg tab 1 tab once daily [Active]; furosemide 40 mg Oral tab 1 tab 2 times per day [Active]; - PMHx: 09:35 hemodialysis; Hypertension; Hypothyroidism; KIDNEY DISEASE STAGE 3; stage 5 as of ; - PSHx: 09:35 Dialysis Port; Parathyroid Removal; Fistula; Cholecystectomy; Knee Surgery (left); hb - Immunization history:: Adult Immunizations up to date. - Social history:: Smoking status: Patient/guardian denies using tobacco. - Ebola Screening: : No symptoms or risks identified at this time. Screenin:48 Abuse screen: Denies threats or abuse. Denies injuries from another. Nutritional ss screening: No deficits noted. Tuberculosis screening: Never had TB. Fall Risk None identified. Assessment: 09:48 General: Appears in no apparent distress. comfortable, Behavior is calm, cooperative, ss appropriate for age, Reports slight fatigue after dialysis session which is reportedly normal for her Denies fever, feeling ill, chills. Pain: Complains of pain in diaphragm Pain currently is 0 out of 10 on a pain scale. at worst was 7 out of 10 on a pain scale. 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 radiated to back just for one minute, then the pain was completely gone. Is lasting a few minutes. Neuro: Level of Consciousness is awake, alert, obeys commands, Oriented to person, place, time, situation. Cardiovascular: Capillary refill < 3 seconds is brisk in bilateral fingers. Respiratory: Airway is patent Respiratory effort is even, unlabored, Respiratory pattern is regular, symmetrical. GI: Bowel sounds present X 4 quads. Abd is soft and non tender X 4 quads. : No signs and/or symptoms were reported regarding the genitourinary system. Reports "very little urine output" on HD MWF. EENT: Nares are clear Oral mucosa is moist. Throat is clear. Derm: Skin is intact, is healthy with good turgor, Skin is dry, Skin is pink, warm \\T\\ dry. normal. Musculoskeletal: Circulation, motion, and sensation intact. Range of motion: intact in all extremities, Swelling absent. 10:45 Reassessment: Patient appears in no apparent distress at this time. No changes from aj1 previously documented assessment. Patient and/or family updated on plan of care and expected duration. Pain level reassessed. Patient is alert, oriented x 3, equal unlabored respirations, skin warm/dry/pink. 11:33 Reassessment: Patient appears in no apparent distress at this time. No changes from aj1 previously documented assessment. Patient and/or family updated on plan of care and expected duration. Pain level reassessed. Patient is alert, oriented x 3, equal unlabored respirations, skin warm/dry/pink. Vital Signs: 09:34 BP 137 / 98; Pulse 71; Resp 20; Temp 97.8; Pulse Ox 100% on R/A; Pain 0/10; hb 10:30 BP 135 / 82; Pulse 68; Resp 16; Pulse Ox 99% on R/A; aj1 11:36 BP 142 / 89; Pulse 76; Resp 18; Pulse Ox 97% on R/A; aj1 ED Course: 09:20 Patient arrived in ED. sb2 09:20 Lemuel Wisdom MD is Private Physician. sb2 09:34 Triage completed. hb 09:34 Arm band placed on right wrist. hb 09:37 Mumtaz Samuel PA is PHCP. jr8 09:37 Ramin Gandhi MD is Attending Physician. jr8 09:48 Patient has correct armband on for positive identification. Bed in low position. Call light in reach. 09:59 Yana Hayden, RN is Primary Nurse. aj1 10:30 No provider procedures requiring assistance completed. Initial lab(s) drawn, by nv, aj1 sent to lab. Inserted saline lock: 22 gauge in right antecubital area, using aseptic technique. Blood collected. 11:22 Lemuel Wisdom MD is Referral Physician. jr8 11:35 IV discontinued, intact, bleeding controlled, No redness/swelling at site. Pressure aj1 dressing applied. Administered Medications: No medications were administered Outcome: 11:22 Discharge ordered by . jr8 11:57 Discharged to home ambulatory. 11:57 Condition: good 11:57 Discharge instructions given to patient, Instructed on discharge instructions, follow up and referral plans. medication usage, Demonstrated understanding of instructions, follow-up care. 11:58 Patient left the ED. Signatures: Yana Hayden, RN RN aj1 Fabby Ochoa RN RN Mumtaz Samuel PA PA jr8 Chloe Montgomery, FRANKIE DAVID Sara Coronado sb2
--- NOTE | 2018-01-16 11:23 | EDPHYS ---
Physician Documentation [facility] Name: Adrianne Bond Age: 52 yrs Sex: Female : 1965 Arrival Date: 01/16/2018 Time: 09:20 Bed 23 Private MD: Lemuel Wisdom ED Physician Ramin Gandhi HPI: 01/16 11:20 This 52 yrs old Female presents to ER via Ambulatory with complaints of Abd jr8 Pain > 50 y/o, Back Pain. 11:20 The patient presents with abdominal pain in the epigastric area. Onset: The jr8 symptoms/episode began/occurred acutely, today. The symptoms radiate to back. Associated signs and symptoms: none. The symptoms are described as sharp. Modifying factors: The symptoms are alleviated by nothing, the symptoms are aggravated by nothing. Severity of pain: At its worst the pain was moderate in the emergency department the pain has resolved. The patient has not experienced similar symptoms in the past. The patient has not recently seen a physician. Had just finished having dialysis. Sudden onset epigastric pain that last 10 min then went away. Historical: - Allergies: 09:35 tramadol; hb - Home Meds: 09:35 calcitriol 0.25 mcg Oral cap 1 cap once daily [Active]; DIALYSIS MWF [Active]; hb levothyroxine 75 mcg tab 1 tab once daily [Active]; furosemide 40 mg Oral tab 1 tab 2 times per day [Active]; - PMHx: 09:35 hemodialysis; Hypertension; Hypothyroidism; KIDNEY DISEASE STAGE 3; stage 5 as of ; - PSHx: 09:35 Dialysis Port; Parathyroid Removal; Fistula; Cholecystectomy; Knee Surgery (left); hb - Immunization history:: Adult Immunizations up to date. - Social history:: Smoking status: Patient/guardian denies using tobacco. - Ebola Screening: : No symptoms or risks identified at this time. ROS: 11:20 Eyes: Negative for injury, pain, redness, and discharge, ENT: Negative for injury, jr8 pain, and discharge, Neck: Negative for injury, pain, and swelling, Cardiovascular: Negative for chest pain, palpitations, and edema, Respiratory: Negative for shortness of breath, cough, wheezing, and pleuritic chest pain, Back: Negative for injury and pain, MS/Extremity: Negative for injury and deformity, Skin: Negative for injury, rash, and discoloration, Neuro: Negative for headache, weakness, numbness, tingling, and seizure. 11:20 Abdomen/GI: Positive for abdominal pain, Negative for nausea, vomiting, and diarrhea, constipation, abdominal cramps, abdominal distension, anorexia, dysphagia, hematemesis, black/tarry stool, rectal pain, rectal bleeding, bowel incontinence, flatulence. Exam: 11:20 Eyes: Pupils equal round and reactive to light, extra-ocular motions intact. Lids and jr8 lashes normal. Conjunctiva and sclera are non-icteric and not injected. Cornea within normal limits. Periorbital areas with no swelling, redness, or edema. ENT: Nares patent. No nasal discharge, no septal abnormalities noted. Tympanic membranes are normal and external auditory canals are clear. Oropharynx with no redness, swelling, or masses, exudates, or evidence of obstruction, uvula midline. Mucous membranes moist. Neck: Trachea midline, no thyromegaly or masses palpated, and no cervical lymphadenopathy. Supple, full range of motion without nuchal rigidity, or vertebral point tenderness. No Meningismus. Cardiovascular: Regular rate and rhythm with a normal S1 and S2. No gallops, murmurs, or rubs. Normal PMI, no JVD. No pulse deficits. Respiratory: Lungs have equal breath sounds bilaterally, clear to auscultation and percussion. No rales, rhonchi or wheezes noted. No increased work of breathing, no retractions or nasal flaring. Abdomen/GI: Soft, non-tender, with normal bowel sounds. No distension or tympany. No guarding or rebound. No evidence of tenderness throughout. Back: No spinal tenderness. No costovertebral tenderness. Full range of motion. Skin: Warm, dry with normal turgor. Normal color with no rashes, no lesions, and no evidence of cellulitis. MS/ Extremity: Pulses equal, no cyanosis. Neurovascular intact. Full, normal range of motion. Neuro: Awake and alert, GCS 15, oriented to person, place, time, and situation. Cranial nerves II-XII grossly intact. Motor strength 5/5 in all extremities. Sensory grossly intact. Cerebellar exam normal. Normal gait. Vital Signs: 09:34 BP 137 / 98; Pulse 71; Resp 20; Temp 97.8; Pulse Ox 100% on R/A; Pain 0/10; hb 10:30 BP 135 / 82; Pulse 68; Resp 16; Pulse Ox 99% on R/A; aj1 11:36 BP 142 / 89; Pulse 76; Resp 18; Pulse Ox 97% on R/A; aj1 MDM: 09:37 Patient medically screened. [facility] 11:20 Differential diagnosis: AAA, acute coronary syndrome, cholecystitis, Cholelithiasis, jr8 gastritis, gastroesophageal reflux disease, Mesenteric ischemia or infarction, myocardia ischemia or infarction, non-specific abd pain, pancreatitis, Peptic Ulcer Disease, Perf. Duodenal Ulcer, Perf. Gastric Ulcer. Data reviewed: vital signs, nurses notes, lab test result(s), EKG, and as a result, I will discharge patient. Data interpreted: Pulse oximetry: on room air is 100 %. Interpretation: normal. Counseling: I had a detailed discussion with the patient and/or guardian regarding: the historical points, exam findings, and any diagnostic results supporting the discharge/admit diagnosis, lab results, the need for outpatient follow up, a family practitioner, to return to the emergency department if symptoms worsen or persist or if there are any questions or concerns that arise at home. Response to treatment: the patient's symptoms have resolved after treatment. 01/16 10:10 Order name: Basic Metabolic Panel; Complete Time: 11:01/16 10:10 Order name: CBC with Diff; Complete Time: 10:41 01/16 09:48 Order name: EKG; Complete Time: 09:49 01/16 10:10 Order name: Hepatic Function; Complete Time: 11:01/16 10:10 Order name: Lipase; Complete Time: 11:01/16 10:10 Order name: Troponin (emerg Dept Use Only); Complete Time: 11:01/16 09:48 Order name: EKG - Nurse/Tech; Complete Time: 11:03 01/16 10:10 Order name: IV Saline Lock; Complete Time: 11:01/16 10:10 Order name: Labs collected and sent; Complete Time: 11:03 Administered Medications: No medications were administered Disposition: 17:43 Co-signature as Attending Physician, Ramin Gandhi MD. rn Disposition: 01/16/18 11:22 Discharged to Home. Impression: Epigastric pain. - Condition is Stable. - Discharge Instructions: Abdominal Pain, Adult. - Medication Reconciliation Form, Thank You Letter, Antibiotic Education, Prescription Opioid Use form. - Follow up: Lemuel Wisdom MD; When: 2 - 3 days; Reason: Recheck today's complaints, Continuance of care, Re-evaluation by your physician. - Problem is new. - Symptoms have improved. Signatures: Dispatcher [employer] EDMS Ramin Gandhi MD MD rn Smirch, Shelby, RN RN ss Roszak, Josh, PA PA jr8 Chloe Montgomery RN RN Corrections: (The following items were deleted from the chart) 11:58 11:22 01/16/2018 11:22 Discharged to Home. Impression: Epigastric pain. Condition is ss Stable. Forms are Medication Reconciliation Form, Thank You Letter, Antibiotic Education, Prescription Opioid Use. Follow up: Lemuel Wisdom; When: 2 - 3 days; Reason: Recheck today's complaints, Continuance of care, Re-evaluation by your physician. Problem is new. Symptoms have improved. jr8
[2018-01-16 12:40] VITALS: TEMP 97.8
[2018-01-16 12:43] VITALS: BP 142/89; O2SAT 97
--- NOTE | 2018-01-16 13:14 | EKG ---
Test Date: 2018-01-16 Test Time: 10:07:33 Pants Cutter: EMPERATRIZ MEASUREMENT RESULTS: Intervals: Rate: 70 CT: 146 QRSD: 74 QT: 414 QTc: 447 Avenel: P: 62 CT: 146 QRS: 44 T: 69 INTERPRETIVE STATEMENTS: Normal sinus rhythm Normal ECG Compared to ECG 01/13/2017 22:46:24 Sinus bradycardia no longer present Electronically Signed On 01-16-18 13:14:22 CDT by Chito Higgins
== END 2018-01-16 11:58 | disposition home or self-care (01) ==
LOC: ER 09:17
DX: R10.13 Epigastric pain (principal); I12.0 Hypertensive chronic kidney disease with stage 5 chronic kidney disease or end stage renal disease; N18.5 Chronic kidney disease, stage 5; E03.9 Hypothyroidism, unspecified; Z88.6 Allergy status to analgesic agent; Z99.2 Dependence on renal dialysis
CPT/HCPCS: 36415; 80048; 80076; 83690; 84484; 85025; 93005; 99283

== ENCOUNTER 2019-08-17 15:11 | Emergency (ER) | payer OTHER ==
--- OUTSIDE RECORDS SUMMARY | 2019-08-17 15:16 | XMS REPORT ---
:1965 Author Organization [facility] t Address [facility] [place] [address] Care Team Providers Name Role Phone ANDREA CLARKE Unavailable Unavailable Problems This patient has no known problems. Allergies, Adverse Reactions, Alerts This patient has no known allergies or adverse reactions. Medications This patient has no known medications. Results Test Description Test Time Test Comments Text Results Atomic Results Result Comments FLOW PRA CLASS I AND II 2017-04-08 09:48:00 Test Item Value Reference Range Comments DATE OF SERUM (BEAKER) (test code = 2289) [id number] SERUM # (BEAKER) (test code = 2290) [id number] FLOW PRA CLASS I AND II (test code = 2421) See Scanned Report AB SPECIFICITY CLASS [id number] 07:35:00 Test Item Value Reference Range Comments DATE OF SERUM (BEAKER) (test code = 2289) [id number] SERUM # (BEAKER) (test code = 2290) [id number] AB SPECIFICITY CLASS I (BEAKER) (test code = 2429) AB SPECIFICITY CLASS [id number] 07:35:00 Test Item Value Reference Range Comments DATE OF SERUM (BEAKER) (test code = 2289) [id number] SERUM # (BEAKER) (test code = 2290) [id number] AB SPECIFICITY CLASS II (BEAKER) (test See Scanned Report code = 2430) FLOW PRA CLASS I AND [id number] 11:13:00 Test Item Value Reference Range Comments DATE OF SERUM (BEAKER) (test code = 2289) [id number] SERUM # (BEAKER) (test code = 2290) [id number] FLOW PRA CLASS I AND II (test code = See Scanned Report 2421) AB SPECIFICITY CLASS [id number] 11:57:00 Test Item Value Reference Range Comments DATE OF SERUM (BEAKER) (test code = 2289) [id number] SERUM # (BEAKER) (test code = 2290) [id number] AB SPECIFICITY CLASS II (BEAKER) (test See Scanned Report code = 2430) AB SPECIFICITY CLASS [id number] 11:57:00 Test Item Value Reference Range Comments DATE OF SERUM (BEAKER) (test code = 2289) [id number] SERUM # (BEAKER) (test code = 2290) [id number] AB SPECIFICITY CLASS I (BEAKER) (test code = 2429) OCCULT BLOOD, [id number] 01:23:00 Test Item Value Reference Range Comments FECAL OCCULT BLOOD (BEAKER) (test code = 618) Negative Ne gative OCCULT BLOOD, [id number] 01:22:00 Test Item Value Reference Range Comments FECAL OCCULT BLOOD (BEAKER) (test code = 618) Negative Ne gative FLOW PRA CLASS I AND [id number] 22:58:00 Test Item Value Reference Range Comments DATE OF SERUM (BEAKER) (test code = 2288) [id number] SERUM # (BEAKER) (test code = 2290) [id number] FLOW PRA CLASS I AND II (test code = See Scanned Report 2421) HLA [id number] 20:21:00 Test Item Value Reference Range Comments HLA RESULT (BEAKER) (test code = 2311) See Scanned Report HLA-A AG1 (BEAKER) (test code = 2521) HLA-A AG2 (BEAKER) (test code = 2522) HLA-B AG1 (BEAKER) (test code = 2523) HLA-B AG2 (BEAKER) (test code = 2524) HLA-C AG1 (BEAKER) (test code = 2525) HLA-C AG2 (BEAKER) (test code = 2526) HLA-DR AG1 (BEAKER) (test code = 2518) HLA-DR AG2 (BEAKER) (test code = 2519) HLA-DQ AG1 (BEAKER) (test code = 2514) HLA-DQ AG2 (BEAKER) (test code = 2515) HLA-DRW (BEAKER) (test code = 2583) VARICELLA ZOSTER ANTIBODY, [id number] 14:57:00 Test Item Value Reference Range Comments VARICELLA ZOSTER IGG (AL) (BEAKER) (test code = 3197) 2.0 Al VARICELLA ZOSTER RESULT INTERPRETATIONS: <=0.8 Al Nonreactive: Presumed non-immune to VZV 0.9-1.0 Al Equivocal >=1.1 Al Reactive: Presumed immune to VZVCYTOMEGALOVIRUS ANTIBODY, [id number] 14:54:00 Test Item Value Reference Range Comments CYTOMEGALOVIRUS IGG ANTIBODY (BEAKER) (test code = Positive 790) CYTOMEGALOVIRUS ANTIBODY, [id number] 14:54:00 Test Item Value Reference Range Comments CYTOMEGALOVIRUS IGM ANTIBODY (BEAKER) (test code = Negative 816) EBV-VCA ANTIBODY, [id number] 14:54:00 Test Item Value Reference Range Comments [place]-CORREA VCA IGG (BEAKER) (test code = 983) Positive EBV-VCA ANTIBODY, [id number] 14:54:00 Test Item Value Reference Range Comments [place]REA VCA IGM (BEAKER) (test code = 984) Negative [id number] 12:57:00 Test Item Value Reference Range Comments RPR SCREEN (BEAKER) (test code = 420) Nonreactive Nonreactiv e URINE [id number] 12:18:00 Test Item Value Reference Range Comments CULTURE (BEAKER) (test code = 1095) No growth HEMOGLOBIN [id number] 11:58:00 Test Item Value Reference Range Comments HEMOGLOBIN A1C (BEAKER) (test code = 368) 5.2 % 4.3-6. 1 HEPATITIS B SURFACE [id number] 10:42:00 Test Item Value Reference Range Comments HEPATITIS B SURFACE ANTIBODY (BEAKER) (test code = < mIU/mL <8.0 647) HEPATITIS B SURFACE [id number] 10:38:00 Test Item Value Reference Range Comments HEPATITIS B SURFACE ANTIGEN (2) (BEAKER) (test Nonreactive N onreactive code = 2585) HEPATITIS B CORE ANTIBODY, [id number] 10:38:00 Test Item Value Reference Range Comments HEPATITIS B CORE IGM ANTIBODY (BEAKER) (test Nonreactive Non reactive code = 645) HEPATITIS C [id number] 10:38:00 Test Item Value Reference Range Comments HEPATITIS C ANTIBODY (BEAKER) (test code = 367) Nonreactive Nonreactive HIV-1 ANTIGEN WITH HIV-1/2 [id number] 10:38:00 Test Item Value Reference Range Comments HIV-1 ANTIGEN WITH HIV 1\T\2 ANTIBODY (2) Nonreactive Nonrea ctive (BEAKER) (test code = 2586) COMPREHENSIVE METABOLIC [id number] 10:32:00 Test Item Value Reference Range Comments TOTAL PROTEIN (BEAKER) 7.9 gm/dL 6.0-8.3 (test code = 770) ALBUMIN (BEAKER) (test 4.1 g/dL 3.5-5.0 code = 1145) ALKALINE PHOSPHATASE 70 U/L 40-150 (BEAKER) (test code = 346) BILIRUBIN TOTAL (BEAKER) 0.5 mg/dL 0.2-1.2 (test code = 377) SODIUM (BEAKER) (test code 139 meq/L 136-145 = 381) POTASSIUM (BEAKER) (test 3.9 meq/L 3.5-5.1 code = 379) CHLORIDE (BEAKER) (test 101 meq/L 98-107 code = 382) CO2 (BEAKER) (test code = 26 meq/L 22-29 355) BLOOD UREA NITROGEN 21 mg/dL 7-21 (BEAKER) (test code = 354) CREATININE (BEAKER) (test 3.93 mg/dL 0.57-1.25 code = 358) GLUCOSE RANDOM (BEAKER) 85 mg/dL 70-105 (test code = 652) CALCIUM (BEAKER) (test 9.3 mg/dL 8.4-10.2 code = 697) AST (SGOT) (BEAKER) (test 22 U/L 5-34 code = 353) ALT (SGPT) (BEAKER) (test 14 U/L 6-55 code = 347) EGFR (BEAKER) (test code = 12 mL/min/1.73 sq m E STIMATED GFR IS NOT 1092) ACCURATE CREA TININE CLEARANCE IN PRE DICTING GLOMERULAR FILTR ATION RATE. ESTIMATED GFR IS NOT APPLICABLE F OR DIALYSIS PATIENT S. URINALYSIS W/ [id number] 10:22:00 Test Item Value Reference Range Comments COLOR (BEAKER) (test code = 470) Light Yellow CLARITY (BEAKER) (test code = 469) Clear SPECIFIC GRAVITY UA (BEAKER) (test code = 468) 1.003 1 .001-1.035 PH UA (BEAKER) (test code = 467) 7.5 5.0-8.0 PROTEIN UA (BEAKER) (test code = 464) 30 mg/dL Negative GLUCOSE UA (BEAKER) (test code = 365) Negative Negative KETONES UA (BEAKER) (test code = 371) Negative Negative BILIRUBIN UA (BEAKER) (test code = 462) Negative Negative BLOOD UA (BEAKER) (test code = 461) Negative Negative NITRITE UA (BEAKER) (test code = 465) Negative Negative LEUKOCYTE ESTERASE UA (BEAKER) (test code = Negative Nega tive 466) UROBILINOGEN UA (BEAKER) (test code = 463) 0.2 mg/dL 0.2-1 .0 RBC UA (BEAKER) (test code = 519) 0 /HPF WBC UA (BEAKER) (test code = 520) < /HPF MUCUS (BEAKER) (test code = 1574) Rare SQUAMOUS EPITHELIAL (BEAKER) (test code = 516) < /HPF SOURCE(BEAKER) (test code = 2795) URIC [id number] 10:18:00 Test Item Value Reference Range Comments URIC ACID (BEAKER) (test code = 773) 4.0 mg/dL 2.6-7.2 [id number] 10:18:00 Test Item Value Reference Range Comments PHOSPHORUS (BEAKER) (test code = 604) 4.1 mg/dL 2.3-4.7 LIPID [id number] 10:18:00 Test Item Value Reference Range Comments TRIGLYCERIDES (BEAKER) (test code = 540) 128 mg/dL CHOLESTEROL (BEAKER) (test code = 631) 164 mg/dL HDL CHOLESTEROL (BEAKER) (test code = 976) 52 mg/dL LDL CHOLESTEROL CALCULATED (BEAKER) (test code = 86 mg/dL 633) Triglyceride Reference Range: Low Risk <150 Borderline 150-199 High Risk 200-499 Very High Risk >=500Cholesterol Reference Range: Low Risk <200 Borderline 200-239 High Risk >240HDL Cholesterol Reference Range: Low Risk >=60 High Risk <40LDL Cholesterol Reference Range: Optimal <100 Near Optimal 100-129 Borderline 130-159 High 160-189 Very High >=190GAMMA GLUTAMYL TRANSFERASE (GGT)2016-11-24 10:18:00 Test Item Value Reference Range Comments GAMMA GLUTAMYL TRANSFERASE (BEAKER) (test code = 364) 18 U/L 9-64 LACTATE DEHYDROGENASE (LDH)2016-11-24 10:18:00 Test Item Value Reference Range Comments LACTATE DEHYDROGENASE (BEAKER) (test code = 635) 269 U/L 125-220 PTH, [id number] 10:17:00 Test Item Value Reference Range Comments PARATHYROID HORMONE INTACT (BEAKER) (test code = 4.5 pg/mL 8.5-72.5 577) Effective 03/05/2014: Reference Range ChangeNew: 8.5-72.5 Previous: 15.0-90.0 PT/[id number] 10:05:00 Test Item Value Reference Range Comments PROTIME (BEAKER) (test code = 759) 12.9 seconds 11.7-14.7 INR (BEAKER) (test code = 370) 1.0 <=5.9 PARTIAL THROMBOPLASTIN TIME (BEAKER) (test code 34.2 seconds 22.5-36.0 = 760) RECOMMENDED COUMADIN/WARFARIN INR THERAPY RANGESSTANDARD DOSE: 2.0 - 3.0 Includes: PROPHYLAXIS forvenous thrombosis, systemic embolization; TREATMENT for venous thrombosis and/or pulmonary embolus.HIGH RISK: Target INR is 2.5-3.5 for patients with mechanical heart valves.CBC W/PLT COUNT & AUTO DIFFERENTIAL 2016-11-24 09:56:00 Test Item Value Reference Range Comments WHITE BLOOD CELL COUNT (BEAKER) (test code = 5.9 K/ L 3.5 -10.5 775) RED BLOOD CELL COUNT (BEAKER) (test code = 761) 3.42 M/ L 3.93-5.22 HEMOGLOBIN (BEAKER) (test code = 410) 11.8 GM/DL 11.2-15.7 HEMATOCRIT (BEAKER) (test code = 411) 33.7 % 34.1-44.9 MEAN CORPUSCULAR VOLUME (BEAKER) (test code = 98.5 fL 79 .4-94.8 753) MEAN CORPUSCULAR HEMOGLOBIN (BEAKER) (test code 34.5 pg 25.6-32.2 = 751) MEAN CORPUSCULAR HEMOGLOBIN CONC (BEAKER) (test 35.0 GM/DL 32.2-35.5 code = 752) RED CELL DISTRIBUTION WIDTH (BEAKER) (test code 14.5 % 11.7-14.4 = 412) PLATELET COUNT (BEAKER) (test code = 756) 175 K/CU MM 150-45 0 MEAN PLATELET VOLUME (BEAKER) (test code = 754) 10.3 fL 9.4-12.3 NUCLEATED RED BLOOD CELLS (BEAKER) (test code = 0 /100 WBC 0-0 413) NEUTROPHILS RELATIVE PERCENT (BEAKER) (test code 63 % = 429) LYMPHOCYTES RELATIVE PERCENT (BEAKER) (test code 27 % = 430) MONOCYTES RELATIVE PERCENT (BEAKER) (test code = 8 % 431) EOSINOPHILS RELATIVE PERCENT (BEAKER) (test code 2 % = 432) BASOPHILS RELATIVE PERCENT (BEAKER) (test code = 1 % 437) NEUTROPHILS ABSOLUTE COUNT (BEAKER) (test code = 3.68 K/ L 1.56-6.13 670) LYMPHOCYTES ABSOLUTE COUNT (BEAKER) (test code = 1.55 K/ L 1.18-3.74 414) MONOCYTES ABSOLUTE COUNT (BEAKER) (test code = 0.47 K/ L 0 .24-0.36 415) EOSINOPHILS ABSOLUTE COUNT (BEAKER) (test code = 0.10 K/ L 0.04-0.36 416) BASOPHILS ABSOLUTE COUNT (BEAKER) (test code = 0.03 K/ L 0 .01-0.08 417) IMMATURE GRANULOCYTES-RELATIVE PERCENT (BEAKER) 0 % 0-1 (test code = 2801)
--- OUTSIDE RECORDS SUMMARY | 2019-08-17 15:16 | XMS REPORT | Summary of Care ---
:1965 Author Organization [facility] Address [address] [place] [id number] Care Team Providers Name Role Phone Luli Wisdom Primary Care Provider Reason for Visit Reason Comments Follow-up CKD Other (Routine) Status Reason Specialty Diagnoses / Procedures Referred By Dimas dave Referred To Contact Closed Surgery Diagnoses End stage renal disease Naz Aldana John Procedures Discharge Follow-up: Specialty Provider NAZ ALDANA; 2 Weeks MD Luis A Gunn MD [address] [place] [address] [address] [place], [place] [address] Phone: [place] [address] Fax: Encounter Details Date Type Department Care Team Description 11/10/2018 Office Visit [facility] Surgical Naz Aldana End sta ge renal disease (Primary Dx); Specialties - MD Luis A Obesity (BMI 30-39.9); [address] Peritoneal dialysis catheter dysfunction, initial encounter; [address] [place] [address] [address], [address] [place] [address] [phone] Allergies Active Allergy Reactions Severity Noted Date Comments Tramadol Nausea and/or Vomiting 09/01/2015 documented as of this encounter (statuses as of 11/10/2018) Medications Medication Sig Dispensed Refills Start Date End Date Status ALPRAZolam (XANAX) 0.25 0 11/21/2015 Active mg tablet SERTraline (ZOLOFT) 25 0 11/14/2015 Active mg tablet calcium carbonate Take 2 tablets 240 tablet 2 03/17/2016 Active (OSCAL-500) 500 mg by mouth 3 calcium (1,250 mg) (three) times tablet daily with meals. CALCITRIOL 0.25 mcg TAKE ONE CAPSULE 60 capsule 0 03/21/2017 Active capsuleIndications: BY MOUTH TWICE A Hypocalcemia DAY levothyroxine 75 mcg Take 1 tablet by 30 tablet 1 05/31/2017 Active tabletIndications: mouth every Primary hypothyroidism morning. furosemide (LASIX) 40 Take 40 mg by 0 Active mg tablet mouth 2 (two) times daily. acetaminophen 650 mg CR Take 1 tablet by 30 tablet 0 9 Active tabletIndications: End mouth every 8 stage renal disease (eight) hours as needed for Pain. ibuprofen 600 mg Take 1 tablet by 30 tablet 0 09/04/2018 Active tabletIndications: End mouth 3 (three) stage renal disease times daily with meals. Polyethylene Glycol Take 1 Packet by 5 Packet 0 10/06/2018 Active 3350 (MIRALAX) 17 gram mouth daily. powderIndications: Lower abdominal pain, Constipation, unspecified constipation type documented as of this encounter (statuses as of 11/10/2018) Active Problems Problem Noted Date Obesity (BMI 30-39.9) 09/06/2018 End stage renal disease 08/21/2018 Overview: Added automatically from request for simran henson [id number] Hypocalcemia 03/16/2016 Osteoporosis 12/02/2015 Primary hypothyroidism 09/01/2015 Hyperparathyroidism 09/01/2015 CKD (chronic kidney disease) stage 3, GFR 30-59 ml/min 09/01/2015 Essential hypertension 09/01/2015 Borderline abnormal thyroid function test 06/03/2015 documented as of this encounter (statuses as of 11/10/2018) Social History Tobacco Use Types Packs/Day Years Used Date Current Every Day Smoker Smokeless Tobacco: Never Used Alcohol Use Drinks/Week oz/Week Comments No 0 Standard drinks or equivalent 0.0 Sex Assigned at Date Recorded Not on file Job Start Date Occupation Industry Not on file Not on file Not on file Travel History Travel Start Travel End No recent travel history available. documented as of this encounter Last Filed Vital Signs Vital Sign Reading Time Taken Comments Blood Pressure 113/74 11/10/2018 10:26 AM CDT Pulse 58 11/10/2018 10:26 AM CDT Temperature 36.4 C (97.6 F) 11/10/2018 10:26 AM CDT Respiratory Rate 16 11/10/2018 10:26 AM CDT Oxygen Saturation - - Inhaled Oxygen Concentration - - Weight 91.6 kg (202 lb) 11/10/2018 10:26 AM CDT Height - - Body Mass Index 33.61 10/05/2018 11:45 PM CDT documented in this encounter Progress Notes Naz Churchill MD - 11/10/2018 10:30 AM CDT GENERAL SURGERY H&P Date of Service: 11/10/2018 Chief Complaint: PD cath pain HPI The patient is a 53 year-old female with ESRD on PD who presents for concern of PD catheter placement which is causing her discomfort and pain. She reports that she is dialyzing nightly, and everything is going well until the last flush of the night, at which point, she experiences lower abdominal pain. She reports overall doing well with her dialysis, but feels she may be taking too much fluid offas her skin has been dry lately. Otherwise, she has no acute complaint today CURRENT HOSPITAL MEDICATIONS Current Outpatient Medications Medication Sig Dispense Refill Polyethylene Glycol 3350 (MIRALAX) 17 gram powder Take 1 Packet by mouth daily. 5 Packet 0 acetaminophen 650 mg CR tablet Take 1 tablet by mouth every 8 (eight) hours as needed for Pain. 30 tablet 0 ibuprofen 600 mg tablet Take 1 tablet by mouth 3 (three) times daily with meals. 30 tablet 0 furosemide (LASIX) 40 mg tablet Take 40 mg by mouth 2 (two) times daily. levothyroxine 75 mcg tablet Take 1 tablet by mouth every morning. 30 tablet 1 CALCITRIOL 0.25 mcg capsule TAKE ONE CAPSULE BY MOUTH TWICE A DAY 60 capsule 0 calcium carbonate (OSCAL-500) 500 mg calcium (1,250 mg) tablet Take 2 tablets by mouth 3 (three)times daily with meals. 240 tablet 2 ALPRAZolam (XANAX) 0.25 mg tablet SERTraline (ZOLOFT) 25 mg tablet No current facility-administered medications for this visit. REVIEW OF SYSTEMS Constitutional: negative Eyes: negative Ears: negative Nose/Sinuses: negative Mouth/Throat: negative Cardiovascular: negative Respiratory: negative Gastrointestinal: See HPI Genitourinary: still making some urine at baseline Musculoskeletal: negative Integumentary: negative Neuro: negative HISTORIES Past Medical History: Diagnosis Date Hyperparathyroidism Hypertension Hypothyroid Kidney disease stage 3-4 Sleep disorder Past Surgical History: Procedure Laterality Date CHOLECYSTECTOMY OTHER Lt knee meniscus repair PARATHYROID IMPLANTATION Left 03/15/2016 Surgeon: Maranda Barclay; Location: [facility] PARATHYROIDECTOMY 10/2014 Left lower gland PARATHYROIDECTOMY Bilateral 03/15/2016 Surgeon: Maranda Barclay; Location: [facility] Family History Problem Relation Age of Onset Cancer Mother Breast Cancer Father Bladder Diabetes Brother Cancer Brother Testicular Diabetes Maternal Aunt Diabetes Maternal Uncle Heart Maternal Grandmother Heart attack Cancer Paternal Grandfather Pancreatic Thyroid NoFHx Social History Socioeconomic History Marital status: Spouse name: Not on file Number of children: Not on file Years of education: Not on file Highest education level: Not on file Occupational History Not on file Social Needs Financial resource strain: Not on file Food insecurity: Worry: Not on file Inability: Not on file Transportation needs: Medical: Not on file Non-medical: Not on file Tobacco Use Smoking status: Current Every Day Smoker Smokeless tobacco: Never Used Substance and Sexual Activity Alcohol use: No Alcohol/week: 0.0 oz Drug use: No Sexual activity: Not on file Lifestyle Physical activity: Days per week: Not on file Minutes per session: Not on file Stress: Not on file Relationships Social connections: Talks on phone: Not on file Gets together: Not on file Attends presybeterian service: Not on file Active member of club or organization: Not on file Attends meetings of clubs or organizations: Not on file Relationship status: Not on file Intimate partner violence: Fear of current or ex partner: Not on file Emotionally abused: Not on file Physically abused: Not on file Forced sexual activity: Not on file Other Topics Concern Not on file Social History Narrative Not on file PHYSICAL EXAM BP 113/74 (BP Location: Right arm, Patient Position: Sitting, BP CUFF SIZE: Adult Large) | Pulse 58 | Temp 36.4 C (97.6 F) (Oral) | Resp 16 | Wt 91.6 kg (202 lb) | BMI 33.61 kg/m General: alert and oriented in no apparent distress Head: normocephalic, atraumatic Eyes: extraocular movements intact; no scleral icterus ENT: no rhinorrhea, moist mucus membranes Neck: supple, trachea midline CV: hemodynamically stable Resp: unlabored, no increased work of breathing, equal bilateral chest rise Abd: soft, non-distended, non-tender, PD cath in place without erythema or drainage. No tenderness near cath site. Extremities/Musculoskeletal: moves extremities well, no edema or cyanosis Skin: skin color, texture, and turgor normal; no rashes or lesions LABORATORY CBC BMP PT/INR WBC (10*3/L) Date Value 10/06/2018 8.47 NA (mmol/L) Date Value 10/06/2018 139 SODIUM-Q (mmol/L) Date Value 05/13/2016 140 No results found for: PT RBC (10*6/L) Date Value 10/06/2018 3.89 (L) K (mmol/L) Date Value 10/06/2018 3.8 POTASSIUM-Q (mmol/L) Date Value 05/13/2016 4.5 No results found for: PTINR PLT (10*3/L) Date Value 10/06/2018 226 CALCIUM (mg/dL) Date Value 10/06/2018 9.2 CALCIUM-Q (mg/dL) Date Value 05/13/2016 10.1 05/13/2016 10.0 HGB (g/dL) Date Value 10/06/2018 13.0 CL (mmol/L) Date Value 10/06/2018 101 CHLORIDE-Q (mmol/L) Date Value 05/13/2016 105 aPTT HCT (%) Date Value 10/06/2018 37.7 BUN (mg/dL) Date Value 10/06/2018 62 (H) UREA NITROGEN (BUN)-Q (mg/dL) Date Value 05/13/2016 36 (H) No results found for: APTTPAT CREATININE (mg/dL) Date Value 10/06/2018 7.40 (H) CREATININE-Q (mg/dL) Date Value 05/13/2016 3.27 (H) GLUCOSE (mg/dL) Date Value 10/06/2018 99 GLUCOSE-Q (mg/dL) Date Value 05/13/2016 81 CO2 TOTAL (mmol/L) Date Value 10/06/2018 23 CARBON DIOXIDE-Q (mmol/L) Date Value 05/13/2016 27 ASSESSMENT The patient is a 53 year-old female with ESRD on PD who presents for concern of painful PD cath. Patient was counseled today that imaging revealed catheter is in the correct location, and the pain is likely due to irritation of the drain, but that this may not be relieved with changing location of the catheter. Recommended to the patient that since her pain is not severe, proceed with no intervention at this time, with plans to follow up for re discussion if pain becomes unbearable, or if catheterhas problems functioning. -no intervention at this time -patient counseled that re-placement of catheter may not improve symptoms and may in fact make them worse -recommended follow up PRN if pain worsens or catheter begins to not function properly Naz Churchill MD General Surgery Sue Sinclair MA - 11/10/2018 10:30 AM Albertinaiftikhar Bond is a 53 year old female comes to clinic independent in ambulation for CKD.Pt comes alone . Pt in NAD w/ pain reported 0/10. Pt preferred language is Citizen Of [place]. Pt. denies fall in last 12 months. Allergies and medications reviewed and updated. 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 Device Shelf Model / Identifier Expiration Serial / Lot Date Catheter, Tyco/Covidien [place] Curl P eritoneal Dialysis 2 Cuff Left 62.5cm #[id number] - [id number] Catheter N/A: Tyco/Covidien [id number] / Implanted: Qty: 1 on 09/04/2018 by Naz Junior MD at [facility] Abdomen [id number] / [id number] documented as of this encounter Results Not on filedocumented in this encounter Visit Diagnoses Diagnosis End stage renal disease - Primary Obesity (BMI 30-39.9) Obesity, unspecified Peritoneal dialysis catheter dysfunction , initial encounter Primary hypothyroidism Unspecified hypothyroidism documented in this encounter Insurance Payer Benefit Plan / Subscriber ID Effective Dates Phone Addre ss Type Group MEDICARE MEDICARE PART xxxxxxxxxxx 2016-Gina [phone] Medicare A & B t 2 [id number] EMERITA GILL [id number] documented as of this encounter"
--- OUTSIDE RECORDS SUMMARY | 2019-08-17 15:16 | XMS REPORT | Summary of Care ---
:1965 Author Organization [facility] Address [address] [place] [address] Care Team Providers Name Role Phone Luli Wisdom Primary Care Provider Reason for Visit Reason Comments Follow-up CKD Other (Routine) Status Reason Specialty Diagnoses / Procedures Referred By Dimas dave Referred To Contact Closed Surgery Diagnoses End stage renal disease Naz Aldana John Procedures Discharge Follow-up: Specialty Provider NAZ ALDANA; 2 Weeks MD Luis A Gunn MD [address] [place] [address] [address] [place], [place] [address] Phone: [place] [address] Fax: Encounter Details Date Type Department Care Team Description 11/10/2018 Office Visit [facility] Surgical Naz Aldana End sta ge renal disease (Primary Dx); Specialties - MD Luis A Obesity (BMI 30-39.9); [address] Peritoneal dialysis catheter dysfunction, initial encounter; [address] [place] [address], [address] [place] [address] [phone] Allergies Active Allergy Reactions Severity Noted Date [...] Added automatically from request for simran henson [id number] Hypocalcemia 03/16/2016 Osteoporosis 12/02/2015 Primary hypothyroidism 09/01/2015 [...] IMPLANTATION Left 03/15/2016 Surgeon: Maranda Barclay; [facility] PARATHYROIDECTOMY 10/2014 Left lower gland PARATHYROIDECTOMY Bilateral 03/15/2016 Surgeon: Maranda Barclay; Location: [facility] Family History Problem Relation Age of [...] file Gets together: Not on file Attends caodaism service: Not on file Active member of [...] pain reported 0/10. Pt preferred language is Malaysian. Pt. denies fall in last 12 months. [...] of this encounter Implants Implanted Type Area Book Publisher Device Shelf Model / Identifier Expiration Serial / Lot Date Catheter, Tyco/Covidien [place] Curl P eritoneal Dialysis 2 Cuff Left 62.5cm #[id number] - [id number] Catheter N/A: Tyco/Covidien [id number] / Implanted: Qty: 1 on 09/04/2018 by Naz Junior MD at [facility] Abdomen [id number] / [id number] documented as of this encounter Results Not [...] BOX Medicare A & B t 2 [id number] EMERITA GILL [id number] documented as of this encounter"
--- NOTE | 2019-08-17 17:43 | RAD REPORT ---
EXAM DESCRIPTION: RAD - Abdomen 1 View (KUB) - 08/17/2019 5:31 pm CLINICAL HISTORY: ABD PAIN Pain COMPARISON: No comparisons FINDINGS: The bowel gas pattern is non-obstructive. No evidence of free air or pneumatosis. No suspi cious calcifications. No significant bony findings. Cholecystectomy clips. Peritoneal dialysis catheter seen. IMPRESSION: No acute abnormality detected.
--- NOTE | 2019-08-17 17:44 | RAD REPORT ---
EXAM DESCRIPTION: RAD - Ankle Left 3 View - 08/17/2019 5:33 pm CLINICAL HISTORY: PAIN COMPARISON: No comparisons FINDINGS: No acute fracture or dislocation seen. Small plantar calcaneal spur.
--- NOTE | 2019-08-17 17:44 | RAD REPORT ---
EXAM DESCRIPTION: RAD - Ankle Right 3 View - 08/17/2019 5:32 pm CLINICAL HISTORY: PAIN COMPARISON: No comparisons FINDINGS: Oblique fracture is seen involving the distal fibula with adjacent soft tissue swelling. N o dislocation evident. Small calcaneal spurs.
--- NOTE | 2019-08-17 18:15 | EDPHYS ---
Physician Documentation [facility] Name: Adrianne Bond Age: 54 yrs Sex: Female : 1965 Arrival Date: 08/17/2019 Time: 15:17 Bed 18 Private MD: ED Physician Del Cardoso HPI: 08/16 18:11 This 54 yrs old Female presents to ER via Wheelchair with complaints of Fall kb Injury, Ankle Injury. 18:11 Details of fall: The patient fell from an upright position. Onset: The symptoms/episode kb began/occurred just prior to arrival. Associated injuries: The patient sustained right ankle, decreased range of motion, painful injury, swelling, lateral side of left foot, sore, full weight bear without difficulty. Severity of symptoms: At their worst the symptoms were moderate, in the emergency department the symptoms are unchanged. The patient has not experienced similar symptoms in the past. The patient has not recently seen a physician. Pt reports she twisted her ankle and fell. States she was worried about her abd due to PD, but is not having any pain there. Reports pain, swelling and inability to bear weight on right ankle and soreness to lateral left foot. 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 - Social history:: Smoking status: Patient denies any tobacco usage or history of. ROS: 18:07 Constitutional: Negative for fever, chills, and weight loss, Cardiovascular: Negative kb for chest pain, palpitations, and edema, Respiratory: Negative for shortness of breath, cough, wheezing, and pleuritic chest pain, Abdomen/GI: Negative for abdominal pain, nausea, vomiting, diarrhea, and constipation, Back: Negative for injury and pain, Skin: Negative for injury, rash, and discoloration, Neuro: Negative for headache, weakness, numbness, tingling, and seizure. 18:07 MS/extremity: Positive for injury or acute deformity, decreased range of motion, pain, swelling, tenderness, of the right ankle. Exam: 18:07 Constitutional: This is a well developed, well nourished patient who is awake, alert, kb and in no acute distress. Head/Face: Normocephalic, atraumatic. Chest/axilla: Normal chest wall appearance and motion. Nontender with no deformity. No lesions are appreciated. Cardiovascular: Regular rate and rhythm with a normal S1 and S2. No gallops, murmurs, or rubs. Normal PMI, no JVD. No pulse deficits. Respiratory: Lungs have equal breath sounds bilaterally, clear to auscultation and percussion. No rales, rhonchi or wheezes noted. No increased work of breathing, no retractions or nasal flaring. Abdomen/GI: Soft, non-tender, with normal bowel sounds. No distension or tympany. No guarding or rebound. No evidence of tenderness throughout. Back: No spinal tenderness. No costovertebral tenderness. Full range of motion. Skin: Warm, dry with normal turgor. Normal color with no rashes, no lesions, and no evidence of cellulitis. Neuro: Awake and alert, GCS 15, oriented to person, place, time, and situation. Cranial nerves II-XII grossly intact. Motor strength 5/5 in all extremities. Sensory grossly intact. Cerebellar exam normal. Normal gait. 18:07 Musculoskeletal/extremity: Extremities: grossly normal except: noted in the right ankle: decreased ROM, pain, swelling, tenderness, ROM: limited active range of motion due to pain, in the right ankle, Circulation is intact in all extremities. Sensation intact. Weight bearing: is unable to bear weight. Vital Signs: 15:39 BP 123 / 78; Pulse 66; Resp 18; Temp 97.5; Pulse Ox 100% ; Weight 90 kg (M); Height 5 sv ft. 5 in. (165.10 cm); 17:45 BP 140 / 79; Pulse 71; Resp 17 S; Pulse Ox 100% on R/A; ca1 18:45 BP 135 / 81; Pulse 76; Resp 15 S; Pulse Ox 100% on R/A; ca1 15:39 Body Mass Index 33.02 (90.00 kg, 165.10 cm) sv Procedures: 18:40 Splinting: Splint applied to right leg using Orthoglass splint, applied by tech. perez Examined by hi, post splint application: neurovascular intact, 2+ distal pulses palpable, brisk capillary refill noted, Patient tolerated well. MDM: 17:29 Patient medically screened. [facility] 18:06 Data reviewed: vital signs, nurses notes. Data interpreted: Pulse oximetry: on room air kb is 100 %. Interpretation: normal. Counseling: I had a detailed discussion with the patient and/or guardian regarding: the historical points, exam findings, and any diagnostic results supporting the discharge/admit diagnosis, radiology results, the need for outpatient follow up, a orthopedic surgeon, to return to the emergency department if symptoms worsen or persist or if there are any questions or concerns that arise at home. 08/16 16:35 Order name: Ankle Left 3 View XRAY; Complete Time: 17:46 sv 08/16 16:35 Order name: Ankle Right 3 View XRAY; Complete Time: 17:46 sv 08/16 16:37 Order name: Abdomen 1 View (KUB) XRAY; Complete Time: 17:46 kb 08/16 17:56 Order name: Short Leg Splint; Complete Time: 18:54 kb 08/16 17:56 Order name: Crutches; Complete Time: 18:54 kb Administered Medications: No medications were administered Disposition: 08/17 14:34 Co-signature as Attending Physician, Del Cardoso MD I agree with the assessment and [facility] plan of care. Disposition: 08/17/19 18:13 Discharged to Home. Impression: Fall on same level from slipping, tripping and stumbling, Displaced fracture of distal fibula, right. - Condition is Stable. - Discharge Instructions: Ankle Fracture, [id number]. - Prescriptions for Tylenol- Codeine #3 300-30 mg Oral Tablet - take 1 tablet by ORAL route every 6 hours As needed; 15 tablet. - Medication Reconciliation Form, Thank You Letter, Antibiotic Education, Prescription Opioid Use form. - Follow up: Emergency Department; When: As needed; Reason: Worsening of condition. Follow up: Private Physician; When: 2 - 3 days; Reason: Recheck today's complaints, Continuance of care, Re-evaluation by your physician. Signatures: Dispatcher [employer] EDLeah Humphrey FNP-C FNP-Ckb Verde, Stephanie, RN RN sv Anderson, Corey, MD MD cha Acob, Sandra, RN RN ca1 Corrections: (The following items were deleted from the chart) 08/16 18:59 18:13 08/17/2019 18:13 Discharged to Home. Impression: Fall on same level from ca1 slipping, tripping and stumbling; Displaced fracture of distal fibula, right. Condition is Stable. Forms are Medication Reconciliation Form, Thank You Letter, Antibiotic Education, Prescription Opioid Use. Follow up: Emergency Department; When: As needed; Reason: Worsening of condition. Follow up: Private Physician; When: 2 - 3 days; Reason: Recheck today's complaints, Continuance of care, Re-evaluation by your physician. kb
--- NOTE | 2019-08-17 18:15 | ER ---
Nurse's Notes [facility] Name: Adrianne Bond Age: 54 yrs Sex: Female : 1965 Arrival Date: 08/17/2019 Time: 15:17 Bed 18 Private MD: Diagnosis: Fall on same level from slipping, tripping and stumbling;Displaced fracture of distal fibula, right Presentation: 08/16 15:36 Chief complaint: Patient states: c/o right ankle pain and left ankle pain, reports sv falling off of her porch that has about 2 steps. Reports she is on peritoneal dialysis and heard a "pop" possibly from her abd area. Care prior to arrival: None. Mechanism of Injury: Fall down 2 steps. Trauma event details: Injury occurred in the [facility], Injury occurred: at home. Injury occurred: August 17, 2019. 15:36 Acuity: TONO 4 sv 15:36 Method Of Arrival: Wheelchair sv 15:38 Coronavirus screen: Proceed with normal triage. Patient denies a cough. Patient denies sv shortness of breath or difficulty breathing. Patient denies measured and/or subjective temperature greater than 100.4F prior to today's visit. Patient denies travel on a cruise ship or to a country the [facility] currently lists as an affected area. Patient denies contact with known and/or suspected case of COVID-19. Ebola Screen: No symptoms or risks identified at this time. Risk Assessment: Do you want to hurt yourself or someone else? Patient reports no desire to harm self or others. Onset of symptoms was August 17, 2019. 15:39 Initial Sepsis Screen: Does the patient meet any 2 criteria? No. Patient's initial sv sepsis screen is negative. Does the patient have a suspected source of infection? No. Patient's initial sepsis screen is negative. Triage Assessment: 15:42 General: Appears in no apparent distress. uncomfortable, Behavior is calm, cooperative, sv appropriate for age. Pain: Complains of pain in left and right ankle. Neuro: Level of Consciousness is awake, alert, obeys commands, Oriented to person, place, time, situation. Respiratory: Respiratory effort is even, unlabored. BAR TURNER: 18:58 LMP N/A - Post-menopause ca1 Trauma Activation: Not Applicable Physician: ED Physician; Name: ; Notified At: ; Arrived At: Physician: General Surgeon; Name: ; Notified At: ; Arrived At: Physician: Radiology; Name: ; Notified At: ; Arrived At: Physician: Respiratory; Name: ; Notified At: ; Arrived At: Physician: Lab; Name: ; Notified At: ; Arrived At: Historical: - Allergies: 15:39 tramadol; sv - PMHx: 15:39 hemodialysis; Hypertension; Hypothyroidism; KIDNEY DISEASE STAGE 3; stage 5 as of sv ; Peritoneal dialysis; - PSHx: 15:39 Dialysis Port; Parathyroid Removal; Fistula; Cholecystectomy; Knee Surgery (left); sv - Immunization history:: Adult Immunizations up to date. - Social history:: Smoking status: Patient denies any tobacco usage or history of. Screenin:45 Abuse screen: Denies threats or abuse. Denies injuries from another. Nutritional ca1 screening: No deficits noted. Tuberculosis screening: No symptoms or risk factors identified. Fall Risk Fall in past 12 months (25 points). Assessment: 17:45 General: Appears in no apparent distress. comfortable, Behavior is calm, cooperative, ca1 appropriate for age. Pain: Complains of pain in right leg. Neuro: Level of Consciousness is awake, alert, obeys commands, Oriented to person, place, time, situation, Appropriate for age. Derm: Skin is intact, is healthy with good turgor, Skin is pink, warm \\T\\ dry. Musculoskeletal: Circulation, motion, and sensation intact. Capillary refill < 3 seconds. 18:45 Reassessment: Patient appears in no apparent distress at this time. Patient is alert, ca1 oriented x 3, equal unlabored respirations, skin warm/dry/pink. Vital Signs: 15:39 BP 123 / 78; Pulse 66; Resp 18; Temp 97.5; Pulse Ox 100% ; Weight 90 kg (M); Height 5 sv ft. 5 in. (165.10 cm); 17:45 BP 140 / 79; Pulse 71; Resp 17 S; Pulse Ox 100% on R/A; ca1 18:45 BP 135 / 81; Pulse 76; Resp 15 S; Pulse Ox 100% on R/A; ca1 15:39 Body Mass Index 33.02 (90.00 kg, 165.10 cm) sv ED Course: 15:17 Patient arrived in ED. as 15:38 Triage completed. sv 15:39 Arm band placed on. sv 15:45 Leah Link FNP-C [facility]. kb 15:45 Del Cardoso MD is Attending Physician. kb 17:29 Sandra Kinsey, RN is Primary Nurse. ca1 17:31 Ankle Left 3 View XRAY In Process Unspecified. EDMS 17:31 Ankle Right 3 View XRAY In Process Unspecified. EDMS 17:31 Abdomen 1 View (KUB) XRAY In Process Unspecified. EDMS 17:45 Patient has correct armband on for positive identification. Bed in low position. Call ca1 light in reach. Side rails up X 1. Pulse ox on. NIBP on. Warm blanket given. 18:55 Crutch training done. Orthoglass splint: Posterior short lleg splint applied on right em1 leg. 18:59 No provider procedures requiring assistance completed. Patient did not have IV access ca1 during this emergency room visit. Administered Medications: No medications were administered Outcome: 18:13 Discharge ordered by . kb 18:59 Discharged to home via wheelchair, with crutches. ca1 18:59 Condition: stable 18:59 Discharge instructions given to patient, Instructed on discharge instructions, follow up and referral plans. no drinking with medication, no driving heavy equipment, medication usage, Demonstrated understanding of instructions, follow-up care, medications, Prescriptions given X 1. 18:59 Patient left the ED. ca1 Signatures: Dispatcher [employer] EDHI Leah Link FNP-C FNP-Ckb Verde, Stephanie, RN RN Malini Kulkarni Eric em1 Sandra Kinsey RN RN ca1 Corrections: (The following items were deleted from the chart) 15:41 15:39 90 kg Measured; Height 5 ft. 5 in.; BMI: 33.0; sv sv 15:42 15:39 Pulse 66bpm; Resp 18bpm; Pulse Ox 100%; Temp 97.5F; 90 kg Measured; Height 5 ft. sv 5 in.; BMI: 33.0; sv
[2019-08-17 19:22] VITALS: TEMP 97.5; O2SAT 100
[2019-08-17 19:31] VITALS: BP 135/81
== END 2019-08-17 18:59 | disposition home or self-care (01) ==
LOC: ER 15:11
PROC: 2W3QX1Z Immobilization of Right Lower Leg using Splint (ICD-10-PCS; principal; 2019-08-17)
DX: S82.831A Other fracture of upper and lower end of right fibula, initial encounter for closed fracture (principal); W01.0XXA Fall on same level from slipping, tripping and stumbling without subsequent striking against object, initial encounter; Y93.9 Activity, unspecified; Y92.9 Unspecified place or not applicable; Z88.5 Allergy status to narcotic agent; I12.0 Hypertensive chronic kidney disease with stage 5 chronic kidney disease or end stage renal disease; N18.5 Chronic kidney disease, stage 5; Z99.2 Dependence on renal dialysis; E03.9 Hypothyroidism, unspecified
CPT/HCPCS: 74018; 99284

== ENCOUNTER 2022-12-20 11:49 | Emergency (ER) | payer OTHER ==
--- OUTSIDE RECORDS SUMMARY | 2022-12-20 11:54 | XMS REPORT | Continuity of Care Document ---
:1965 Author Organization [facility] t Address [address] [place] [id number] Care Team Providers Name Role Phone Alyx Lemuel Rockwell Primary Care Physician Doctor Unassigned, [place] Attending Clinician Unavailable Jeremie Carter DO Attending Clinician Adela Huang Attending Clinician ADELA SMITH Attending Clinician Unavailable Ariadne Lopez MD Attending Clinician ARIADNE LOPEZ Attending Clinician Unavailable Cristy Bustos Attending Clinician Naz Bond MD Attending Clinician ADWOA CLARKE Attending Clinician Unavailable Payers Payer Name Policy Type Policy Number Effective Date Expiration Date S ource Problems Condition Condition Condition Status Onset Resolution Last Treating Co mments Source Name Details Category Date Date Treatment Clinician Date Obesity Obesity Disease Active Univers (BMI (BMI 5-22 ity of 30-39.9) 30-39.9) 00:00: [place] 00 Medical Branch End stage End stage Disease Active Overview: Univers renal renal 5-06 [place] ity of disease disease 00:00: g of this [place] [id number] note Medical might be Branch different from the original. Added automatic ally from request for surgery [id number] ESRD (end ESRD (end Disease [facility]urre [facility] stage stage nce 11-10 [facility] renal 00:[facility]: Medical disease) disease) 00 Center Secondary Secondary Disease Active [facility] hypertensi hypertensi 11-10 Juanita kes on due to on due to 00:00: [facility] roger renal renal 00 [place] disease disease Patient Patient Disease Active [facility] awaiting awaiting 11-10 [facility] renal 00:[facility]: Medical transplant transplant 00 Ce nter Chronic Chronic Disease Recurre [facility] kidney kidney nce 08-23 [facility] disease, disease, 00:00: Medica l stage 5 stage 5 00 [place] Hyperparat Hyperparat Disease Recurre [facility] hyroidism hyroidism nce 08-23 [facility] 00:00: [facility] 00 [place] S/P S/P Disease Recurre [facility] parathyroi parathyroi nce 08-23 Juanita kes dectomy dectomy 00:00: [facility] 00 Center Pre-transp Pre-transp Disease Active [facility] lant lant 08-23 [facility] evaluation evaluation 00:00: Me dical for for 00 [place] chronic chronic kidney kidney disease disease Essential Essential Disease Active [facility] hypertensi hypertensi 08-23 Juanita kes on on 00:00: [address] Recurrent Recurrent Disease Active [facility] UTI UTI 08-23 [facility] 00:[facility]: [address] Hypocalcem Hypocalcem Disease Active 2015-04 U nivers ia ia 1-29 ity of 00:00: [place] [facility] Osteoporos Osteoporos Disease Active U shawandaers is is 8-16 ity of 00:00: [place] [facility] Essential Essential Disease Active Uni vers hypertensi hypertensi 5-16 it y of on on 00:00: [place] [facility] Primary Primary Disease Active Univers hypothyroi hypothyroi 5-16 it y of dism dism 00:00: [place] [facility] Primary Primary Disease Active Univers hypothyroi hypothyroi 5-16 it y of dism dism 00:00: [place] [facility] Hyperparat Hyperparat Disease Active U mayte hyroidism hyroidism 5-16 ity of 00:00: [place] 00 Medical Branch CKD CKD Disease Active Univers (chronic (chronic 5-16 ity of kidney kidney 00:00: [place] disease) disease) 00 Medica l stage 3, stage 3, Branch GFR 30-59 GFR 30-59 ml/min ml/min Borderline Borderline Disease Active U nivers abnormal abnormal 2-16 ity of thyroid thyroid 00:00: [place] function function 00 Medica l test test Branch Current Current Disease Active Overview: [facility] smoker smoker 10-22 [facility] 00:00: g of this Medical 00 note Center might be different from the original. [id number] Hyperparat Hyperparat Disease Active [facility] hyroidism, hyroidism, 10-21 Juanita kes unspecifie unspecifie 00:00: Me dical d d 00 Center Allergies, Adverse Reactions, Alerts Allergy Allergy Status Severity Reaction(s) Onset Inactive Treating Comm ents Source Name Type Date Date Clinician Tramadol Propensi Active Nausea And [facility] ty to Vomiting 08-23 [facility] adverse 00:00: Medical reaction 00 [place] s Tramadol Propensi Active Nausea Univ s ty to and/or 16 ity of adverse Vomiting 00:00: [place] reaction 00 [facility] Branch TRAMADOL DRUG Active N/V Univers INGREDI 5-16 ity of 00:00: [place] 00 [facility] Family History Family Member Diagnosis Comments Start Date Stop Date Source Natural brother Hypertension [facility] Natural brother Cancer [facility] Natural father Cancer [facility] Natural father Hypertension [facility] Maternal grandmother Heart attack [facility] Natural mother Breast cancer [facility] Social History Social Habit Start Date Stop Date Quantity Comments Source History of tobacco Smokes tobacco Un iversity of use daily [facility] Gender identity Universit y of [facility] Sexual orientation Univer sity of [facility] Exposure to Not sure University of SARS-CoV-2 (event) [facility] History of Social 2018-10-26 2018-10-26 Univers ity of function 00:00:00 00:00:00 [facility] Tobacco use and 2018-08-29 2018-08-29 Smokeless Universit y of exposure 00:00:00 00:00:00 tobacco non-user [facility] Alcohol intake 2018-04-06 2018-04-06 Current ALFREDO Linares es 00:00:00 00:00:00 non-drinker of Medical Ce nter alcohol (finding) Cigarettes smoked 2016-08-23 2016-08-23 ALFREDO [place] current (pack per 00:00:00 00:00:00 Medical Center day) - Reported Cigarette 2016-08-23 2016-08-23 ALFREDO [place] pack-years 00:00:00 00:00:00 [facility] Sex Ass[birth year] At [birth year] ALFREDO Freemans 00:00:00 00:00:00 [facility] Smoking Status Start Date Stop Date Source Smokes tobacco daily 2018-08-29 00:00:00 Univers ity [facility] Medications Ordered Filled Start Stop Current Ordering Indication Dosage Frequency Signature Comments Components Source Medication Medication Date Date Medication? Clinician (SIG) Name Name calcitrioL 2020-0 Yes .25ug Take 0.25 U nivers 0.25 mcg 5-04 mcg by ity of capsule 19:44: mouth. [address] calcitrioL 2020-0 Yes .25ug Take 0.25 U nivers 0.25 mcg 5-04 mcg by ity of capsule 19:44: mouth. [address] calcitrioL 2020-0 Yes .25ug Take 0.25 U nivers 0.25 mcg 5-04 mcg by ity of capsule 19:44: mouth. [address] calcitrioL 2020-0 Yes .25ug Take 0.25 U nivers 0.25 mcg 5-04 mcg by ity of capsule 19:44: mouth. [address] calcitrioL 2020-0 Yes .25ug Take 0.25 U nivers 0.25 mcg 5-04 mcg by ity of capsule 19:44: mouth. [address] calcitrioL 2020-0 Yes .25ug Take 0.25 U nivers 0.25 mcg 5-04 mcg by ity of capsule 19:44: mouth. [address] calcitrioL 2020-0 Yes .25ug Take 0.25 U nivers 0.25 mcg 5-04 mcg by ity of capsule 19:44: mouth. [address] calcitrioL 2020-0 Yes .25ug Take 0.25 U nivers 0.25 mcg 5-04 mcg by ity of capsule 19:44: mouth. [address] calcitrioL 2020-0 Yes .25ug Take 0.25 U nivers 0.25 mcg 5-04 mcg by ity of capsule 19:44: mouth. [address] calcitrioL 2020-0 Yes .25ug Take 0.25 U nivers 0.25 mcg 5-04 mcg by ity of capsule 19:44: mouth. [address] calcitrioL 2020-0 Yes .25ug Take 0.25 U nivers 0.25 mcg 5-04 mcg by ity of capsule 19:44: mouth. [address] calcitrioL 2020-0 Yes .25ug Take 0.25 U nivers 0.25 mcg 5-04 mcg by ity of capsule 19:44: mouth. [address] calcitrioL 2020-0 Yes .25ug Take 0.25 U nivers 0.25 mcg 5-04 mcg by ity of capsule 19:44: mouth. [address] levothyroxi 2020-0 Yes 75ug Take 75 Uni vers ne 75 mcg 5-04 mcg by ity of tablet 19:44: mouth. [address] levothyroxi 2020-0 Yes 75ug Take 75 Uni vers ne 75 mcg 5-04 mcg by ity of tablet 19:44: mouth. [address] levothyroxi 2020-0 Yes 75ug Take 75 Uni vers ne 75 mcg 5-04 mcg by ity of tablet 19:44: mouth. [address] levothyroxi 2020-0 Yes 75ug Take 75 Uni vers ne 75 mcg 5-04 mcg by ity of tablet 19:44: mouth. [address] levothyroxi 2020-0 Yes 75ug Take 75 Uni vers ne 75 mcg 5-04 mcg by ity of tablet 19:44: mouth. [address] levothyroxi 2020-0 Yes 75ug Take 75 Uni vers ne 75 mcg 5-04 mcg by ity of tablet 19:44: mouth. [address] levothyroxi 2020-0 Yes 75ug Take 75 Uni vers ne 75 mcg 5-04 mcg by ity of tablet 19:44: mouth. [address] levothyroxi 2020-0 Yes 75ug Take 75 Uni vers ne 75 mcg 5-04 mcg by ity of tablet 19:44: mouth. [place] 32 Medical Branch levothyroxi 2020-0 Yes 75ug Take 75 Uni vers ne 75 mcg 5-04 mcg by ity of tablet 19:44: mouth. [address] Branch levothyroxi 2020-0 Yes 75ug Take 75 Uni vers ne 75 mcg 5-04 mcg by ity of tablet 19:44: mouth. [address] levothyroxi 2020-0 Yes 75ug Take 75 Uni vers ne 75 mcg 5-04 mcg by ity of tablet 19:44: mouth. [address] levothyroxi 2020-0 Yes 75ug Take 75 Uni vers ne 75 mcg 5-04 mcg by ity of tablet 19:44: mouth. [address] Branch levothyroxi 2020-0 Yes 75ug Take 75 Uni vers ne 75 mcg 5-04 mcg by ity of tablet 19:44: mouth. [address] calcitrioL 2020-0 Yes .25ug Take 0.25 U nivers 0.25 mcg 5-04 mcg by ity of capsule 14:44: mouth. [address] levothyroxi 2020-0 Yes 75ug Take 75 Uni vers ne 75 mcg 5-04 mcg by ity of tablet 14:44: mouth. [address] Branch amLODIPine 2020-0 Yes Take 2 Unive rs 5 mg tablet 4-09 tablets by it y of 00:00: mouth once [place] 00 daily Medical Branch Cholecalcif 2020-0 Yes 1{capsu Take 1 U nivers venice, 4-09 le} capsule by ity of Vitamin D3, 00:00: mouth [place] 125 mcg 00 daily. Medical (5,000 Branch unit) capsule amLODIPine 2020-0 Yes Take 2 Unive rs 5 mg tablet 4-09 tablets by it y of 00:00: mouth once [place] 00 daily Medical Branch Cholecalcif 2020-0 Yes 1{capsu Take 1 U nivers venice, 4-09 le} capsule by ity of Vitamin D3, 00:00: mouth [place] 125 mcg 00 daily. Medical (5,000 Branch unit) capsule amLODIPine 2020-0 Yes Take 2 Unive rs 5 mg tablet 4-09 tablets by it y of 00:00: mouth once [place] 00 daily Medical Branch Cholecalcif 2020-0 Yes 1{capsu Take 1 U nivers venice, 4-09 le} capsule by ity of Vitamin D3, 00:00: mouth [place] 125 mcg 00 daily. Medical (5,000 Branch unit) capsule amLODIPine 2020-0 Yes Take 2 Unive rs 5 mg tablet 4-09 tablets by it y of 00:00: mouth once [place] 00 daily Medical Branch Cholecalcif 2020-0 Yes 1{capsu Take 1 U nivers venice, 4-09 le} capsule by ity of Vitamin D3, 00:00: mouth [place] 125 mcg 00 daily. Medical (5,000 Branch unit) capsule amLODIPine 2020-0 Yes Take 2 Unive rs 5 mg tablet 4-09 tablets by it y of 00:00: mouth once [place] 00 daily Medical Branch Cholecalcif 2020-0 Yes 1{capsu Take 1 U nivers venice, 4-09 le} capsule by ity of Vitamin D3, 00:00: mouth [place] 125 mcg 00 daily. Medical (5,000 Branch unit) capsule amLODIPine 2020-0 Yes Take 2 Unive rs 5 mg tablet 4-09 tablets by it y of 00:00: mouth once [place] 00 daily Medical Branch Cholecalcif 2020-0 Yes 1{capsu Take 1 U nivers venice, 4-09 le} capsule by ity of Vitamin D3, 00:00: mouth [place] 125 mcg 00 daily. Medical (5,000 Branch unit) capsule amLODIPine 2020-0 Yes Take 2 Unive rs 5 mg tablet 4-09 tablets by it y of 00:00: mouth once [place] 00 daily Medical Branch Cholecalcif 2020-0 Yes 1{capsu Take 1 U nivers venice, 4-09 le} capsule by ity of Vitamin D3, 00:00: mouth [place] 125 mcg 00 daily. Medical (5,000 Branch unit) capsule amLODIPine 2020-0 Yes Take 2 Unive rs 5 mg tablet 4-09 tablets by it y of 00:00: mouth once [place] 00 daily Medical Branch Cholecalcif 2020-0 Yes 1{capsu Take 1 U nivers venice, 4-09 le} capsule by ity of Vitamin D3, 00:00: mouth [place] 125 mcg 00 daily. Medical (5,000 Branch unit) capsule amLODIPine 2020-0 Yes Take 2 Unive rs 5 mg tablet 4-09 tablets by it y of 00:00: mouth once [place] 00 daily Medical Branch Cholecalcif 2020-0 Yes 1{capsu Take 1 U nivers venice, 4-09 le} capsule by ity of Vitamin D3, 00:00: mouth [place] 125 mcg 00 daily. Medical (5,000 Branch unit) capsule amLODIPine 2020-0 Yes Take 2 Unive rs 5 mg tablet 4-09 tablets by it y of 00:00: mouth once [place] 00 daily Medical Branch Cholecalcif 2020-0 Yes 1{capsu Take 1 U nivers venice, 4-09 le} capsule by ity of Vitamin D3, 00:00: mouth [place] 125 mcg 00 daily. Medical (5,000 Branch unit) capsule amLODIPine 2020-0 Yes Take 2 Unive rs 5 mg tablet 4-09 tablets by it y of 00:00: mouth once [place] 00 daily Medical Branch Cholecalcif 2020-0 Yes 1{capsu Take 1 U nivers venice, 4-09 le} capsule by ity of Vitamin D3, 00:00: mouth [place] 125 mcg 00 daily. Medical (5,000 Branch unit) capsule amLODIPine 2020-0 Yes Take 2 Unive rs 5 mg tablet 4-09 tablets by it y of 00:00: mouth once [place] 00 daily Medical Branch Cholecalcif 2020-0 Yes 1{capsu Take 1 U nivers venice, 4-09 le} capsule by ity of Vitamin D3, 00:00: mouth [place] 125 mcg 00 daily. Medical (5,000 Branch unit) capsule amLODIPine 2020-0 Yes Take 2 Unive rs 5 mg tablet 4-09 tablets by it y of 00:00: mouth once [place] 00 daily Medical Branch Cholecalcif 2020-0 Yes 1{capsu Take 1 U nivers venice, 4-09 le} capsule by ity of Vitamin D3, 00:00: mouth [place] 125 mcg 00 daily. Medical (5,000 Branch unit) capsule amLODIPine 2020-0 Yes Take 2 Unive rs 5 mg tablet 4-09 tablets by it y of 00:00: mouth once [place] 00 daily Medical Branch Cholecalcif 2020-0 Yes 1{capsu Take 1 U nivers venice, 4-09 le} capsule by ity of Vitamin D3, 00:00: mouth [place] 125 mcg 00 daily. Medical (5,000 Branch unit) capsule Polyethylen 2019-0 Yes [id number] 1{packe Take 1 Univers e Glycol 6-21 t} Packet by ity of 3350 00:00: mouth [place] (MIRALAX) 00 daily. Medical 17 gram Branch powder Polyethylen 2019-0 Yes [id number] 1{packe Take 1 Univers e Glycol 6-21 t} Packet by ity of 3350 00:00: mouth [place] (MIRALAX) 00 daily. Medical 17 gram Branch powder Polyethylen Yes [id number] 1{packe Take 1 Univers e Glycol 6-21 t} Packet by ity of 3350 00:00: mouth [place] (MIRALAX) 00 daily. Medical 17 gram Branch powder Polyethylen 2018- Yes [id number] 1{packe Take 1 Univers e Glycol 6-21 t} Packet by ity of 3350 00:00: mouth [place] (MIRALAX) 00 daily. Medical 17 gram Branch powder Polyethylen 2018- Yes [id number] 1{packe Take 1 Univers e Glycol 6-21 t} Packet by ity of 3350 00:00: mouth [place] (MIRALAX) 00 daily. Medical 17 gram Branch powder Polyethylen Yes [id number] 1{packe Take 1 Univers e Glycol 6-21 t} Packet by ity of 3350 00:00: mouth [place] (MIRALAX) 00 daily. Medical 17 gram Branch powder Polyethylen Yes [id number] 1{packe Take 1 Univers e Glycol 6-21 t} Packet by ity of 3350 00:00: mouth [place] (MIRALAX) 00 daily. Medical 17 gram Branch powder Polyethylen Yes [id number] 1{packe Take 1 Univers e Glycol 6-21 t} Packet by ity of 3350 00:00: mouth [place] (MIRALAX) 00 daily. Medical 17 gram Branch powder Polyethylen 2018- Yes [id number] 1{packe Take 1 Univers e Glycol 6-21 t} Packet by ity of 3350 00:00: mouth [place] (MIRALAX) 00 daily. Medical 17 gram Branch powder Polyethylen 2018- Yes [id number] 1{packe Take 1 Univers e Glycol 6-21 t} Packet by ity of 3350 00:00: mouth [place] (MIRALAX) 00 daily. Medical 17 gram Branch powder Polyethylen 2018- Yes [id number] 1{packe Take 1 Univers e Glycol 6-21 t} Packet by ity of 3350 00:00: mouth [place] (MIRALAX) 00 daily. Medical 17 gram Branch powder Polyethylen 2018-0 Yes [id number] 1{packe Take 1 Univers e Glycol 6-21 t} Packet by ity of 3350 00:00: mouth [place] (MIRALAX) 00 daily. Medical 17 gram Branch powder Polyethylen 2018-0 Yes [id number] 1{packe Take 1 Univers e Glycol 6-21 t} Packet by ity of 3350 00:00: mouth [place] (MIRALAX) 00 daily. Medical 17 gram Branch powder Polyethylen 2018-0 Yes [id number] 1{packe Take 1 Univers e Glycol 6-21 t} Packet by ity of 3350 00:00: mouth [place] (MIRALAX) 00 daily. Medical 17 gram Branch powder Polyethylen 2018- Yes [id number] 1{packe Take 1 Univers e Glycol 6-21 t} Packet by ity of 3350 00:00: mouth [place] (MIRALAX) 00 daily. Medical 17 gram Branch powder Polyethylen 2018- Yes [id number] 1{packe Take 1 Univers e Glycol 6-21 t} Packet by ity of 3350 00:00: mouth [place] (MIRALAX) 00 daily. Medical 17 gram Branch powder Polyethylen 2018- Yes [id number] 1{packe Take 1 Univers e Glycol 6-21 t} Packet by ity of 3350 00:00: mouth [place] (MIRALAX) 00 daily. Medical 17 gram Branch powder furosemide 2018-0 Yes 40mg Take 40 mg U nivers (LASIX) 40 5-20 by mouth 2 ity of mg tablet 19:45: (two) [place] 42 times Medical daily. Branch furosemide 2019-0 Yes 40mg Take 40 mg U nivers (LASIX) 40 5-20 by mouth 2 ity of mg tablet 19:45: (two) [place] 42 times Medical daily. Branch furosemide 2019-0 Yes 40mg Take 40 mg U nivers (LASIX) 40 5-20 by mouth 2 ity of mg tablet 19:45: ([facility]) [place] 42 times Medical daily. Branch furosemide 2019-0 Yes 40mg Take 40 mg U nivers (LASIX) 40 5-20 by mouth 2 ity of mg tablet 19:45: (two) [place] 42 times Medical daily. Branch furosemide 2019-0 Yes 40mg Take 40 mg U nivers (LASIX) 40 5-20 by mouth 2 ity of mg tablet 19:45: (two) [place] 42 times Medical daily. Branch furosemide 2019-0 Yes 40mg Take 40 mg U nivers (LASIX) 40 5-20 by mouth 2 ity of mg tablet 19:45: (two) [place] 42 times Medical daily. Branch furosemide 2019-0 Yes 40mg Take 40 mg U nivers (LASIX) 40 5-20 by mouth 2 ity of mg tablet 19:45: (two) [place] 42 times Medical daily. Branch furosemide 2019-0 Yes 40mg Take 40 mg U nivers (LASIX) 40 5-20 by mouth 2 ity of mg tablet 19:45: (two) [place] 42 times Medical daily. Branch furosemide 2019-0 Yes 40mg Take 40 mg U nivers (LASIX) 40 5-20 by mouth 2 ity of mg tablet 19:45: (two) [place] 42 times Medical daily. Branch furosemide 2019-0 Yes 40mg Take 40 mg U nivers (LASIX) 40 5-20 by mouth 2 ity of mg tablet 19:45: (two) [place] 42 times Medical daily. Branch furosemide 2019-0 Yes 40mg Take 40 mg U nivers (LASIX) 40 5-20 by mouth 2 ity of mg tablet 19:45: (two) [place] 42 times Medical daily. Branch furosemide 2019-0 Yes 40mg Take 40 mg U nivers (LASIX) 40 5-20 by mouth 2 ity of mg tablet 19:45: (two) [place] 42 times Medical daily. Branch furosemide 2019-0 Yes 40mg Take 40 mg U nivers (LASIX) 40 5-20 by mouth 2 ity of mg tablet 19:45: (two) [place] 42 times Medical daily. Branch furosemide 2019-0 Yes 40mg Take 40 mg U nivers (LASIX) 40 5-20 by mouth 2 ity of mg tablet 19:45: (two) [place] 42 times Medical daily. Branch furosemide 2019-0 Yes 40mg Take 40 mg U nivers (LASIX) 40 5-20 by mouth 2 ity of mg tablet 19:45: (two) [place] 42 times Medical daily. Branch furosemide 2019-0 Yes 40mg Take 40 mg U nivers (LASIX) 40 5-20 by mouth 2 ity of mg tablet 19:45: (two) [place] 42 times Medical daily. Branch furosemide 2019-0 Yes 40mg Take 40 mg U nivers (LASIX) 40 5-20 by mouth 2 ity of mg tablet 14:45: (two) [place] 42 times Medical daily. Branch acetaminoph 2018-0 Yes [id number] 650mg Take 1 Univers en 650 mg 5-20 tablet by ity o f CR tablet 00:00: mouth [place] 00 every 8 Medical (eight) Branch hours as needed for Pain. ibuprofen 2018-0 Yes [id number] 600mg Take 1 U nivers 600 mg 5-20 tablet by ity of tablet 00:00: mouth 3 (three) Medical times Branch daily with meals. acetaminoph 0 Yes [id number] 650mg Take 1 Univers en 650 mg 5-20 tablet by ity o f CR tablet 00:00: mouth 00 every 8 Medical (eight) Branch hours as needed for Pain. ibuprofen 0 Yes [id number] 600mg Take 1 U nivers 600 mg 5-20 tablet by ity of tablet 00:00: mouth (three) Medical times Branch daily with meals. acetaminoph 0 Yes [id number] 650mg Take 1 Univers en 650 mg 5-20 tablet by ity o f CR tablet 00:00: mouth every 8 Medical (eight) Branch hours as needed for Pain. ibuprofen 0 Yes [id number] 600mg Take 1 U nivers 600 mg 5-20 tablet by ity of tablet 00:00: mouth (three) Medical times Branch daily with meals. acetaminoph 0 Yes [id number] 650mg Take 1 Univers en 650 mg 5-20 tablet by ity o f CR tablet 00:00: mouth 00 every 8 Medical (eight) Branch hours as needed for Pain. ibuprofen 0 Yes [id number] 600mg Take 1 U nivers 600 mg 5-20 tablet by ity of tablet 00:00: mouth (three) Medical times Branch daily with meals. acetaminoph 0 Yes [id number] 650mg Take 1 Univers en 650 mg 5-20 tablet by ity o f CR tablet 00:00: mouth 00 every 8 Medical (eight) Branch hours as needed for Pain. ibuprofen 2018-0 Yes [id number] 600mg Take 1 U nivers 600 mg 5-20 tablet by ity of tablet 00:00: mouth 3 (three) Medical times Branch daily with meals. acetaminoph 2019-0 Yes [id number] 650mg Take 1 Univers en 650 mg 5-20 tablet by ity o f CR tablet 00:00: mouth [place] 00 every 8 Medical (eight) Branch hours as needed for Pain. ibuprofen 2018-0 Yes [id number] 600mg Take 1 U nivers 600 mg 5-20 tablet by ity of tablet 00:00: mouth 3 (three) Medical times Branch daily with meals. acetaminoph 0 Yes [id number] 650mg Take 1 Univers en 650 mg 5-20 tablet by ity o f CR tablet 00:00: mouth [place] 00 every 8 Medical (eight) Branch hours as needed for Pain. ibuprofen 0 Yes [id number] 600mg Take 1 U nivers 600 mg 5-20 tablet by ity of tablet 00:00: mouth (three) Medical times Branch daily with meals. acetaminoph 0 Yes [id number] 650mg Take 1 Univers en 650 mg 5-20 tablet by ity o f CR tablet 00:00: mouth 00 every 8 Medical (eight) Branch hours as needed for Pain. ibuprofen 0 Yes [id number] 600mg Take 1 U nivers 600 mg 5-20 tablet by ity of tablet 00:00: mouth (three) Medical times Branch daily with meals. acetaminoph 0 Yes [id number] 650mg Take 1 Univers en 650 mg 5-20 tablet by ity o f CR tablet 00:00: mouth [place] 00 every 8 Medical (eight) Branch hours as needed for Pain. ibuprofen 0 Yes [id number] 600mg Take 1 U nivers 600 mg 5-20 tablet by ity of tablet 00:00: mouth (three) Medical times Branch daily with meals. acetaminoph 0 Yes [id number] 650mg Take 1 Univers en 650 mg 5-20 tablet by ity o f CR tablet 00:00: mouth [place] 00 every 8 Medical (eight) Branch hours as needed for Pain. acetaminoph 2019-0 Yes [id number] 650mg Take 1 Univers en 650 mg 5-20 tablet by ity o f CR tablet 00:00: mouth [place] 00 every 8 Medical (eight) Branch hours as needed for Pain. ibuprofen Yes [id number] 600mg Take 1 U nivers 600 mg 5-20 tablet by ity of tablet 00:00: mouth (three) Medical times Branch daily with meals. ibuprofen 2019-0 Yes [id number] 600mg Take 1 U nivers 600 mg 5-20 tablet by ity of tablet 00:00: mouth (three) Medical times Branch daily with meals. acetaminoph 2019-0 Yes [id number] 650mg Take 1 Univers en 650 mg 5-20 tablet by ity o f CR tablet 00:00: mouth [place] 00 every 8 Medical (eight) Branch hours as needed for Pain. ibuprofen 2019-0 Yes [id number] 600mg Take 1 U nivers 600 mg 5-20 tablet by ity of tablet 00:00: mouth 3 (three) Medical times Branch daily with meals. acetaminoph 2019-0 Yes [id number] 650mg Take 1 Univers en 650 mg 5-20 tablet by ity o f CR tablet 00:00: mouth [place] 00 every 8 Medical (eight) Branch hours as needed for Pain. ibuprofen 0 Yes [id number] 600mg Take 1 U nivers 600 mg 5-20 tablet by ity of tablet 00:00: mouth (three) Medical times Branch daily with meals. acetaminoph 0 Yes [id number] 650mg Take 1 Univers en 650 mg 5-20 tablet by ity o f CR tablet 00:00: mouth [place] 00 every 8 Medical (eight) Branch hours as needed for Pain. ibuprofen 2018-0 Yes [id number] 600mg Take 1 U nivers 600 mg 5-20 tablet by ity of tablet 00:00: mouth (three) Medical times Branch daily with meals. acetaminoph 2018-0 Yes [id number] 650mg Take 1 Univers en 650 mg 5-20 tablet by ity o f CR tablet 00:00: mouth [place] 00 every 8 Medical (eight) Branch hours as needed for Pain. ibuprofen 2018-0 Yes [id number] 600mg Take 1 U nivers 600 mg 5-20 tablet by ity of tablet 00:00: mouth (three) Medical times Branch daily with meals. acetaminoph 2019-0 Yes [id number] 650mg Take 1 Univers en 650 mg 5-20 tablet by ity o f CR tablet 00:00: mouth [place] 00 every 8 Medical (eight) Branch hours as needed for Pain. ibuprofen 2019-0 Yes [id number] 600mg Take 1 U nivers 600 mg 5-20 tablet by ity of tablet 00:00: mouth 3 (three) Medical times Branch daily with meals. acetaminoph Yes [id number] 650mg Take 1 Univers en 650 mg 5-20 tablet by ity o f CR tablet 00:00: mouth [place] 00 every 8 Medical (eight) Branch hours as needed for Pain. ibuprofen Yes [id number] 600mg Take 1 U nivers 600 mg 5-20 tablet by ity of tablet 00:00: mouth 3 00 (three) Medical times Branch daily with meals. levothyroxi Yes 75ug Take [address] [facility] [address] ne 7-26 mcg by [facility] (SYNTHROID, 12:44: mouth Medic al LEVOTHROID) 35 Every Center 75 MCG morning on tablet an empty stomach. calcitriol 2017- Yes .25ug Q.5D Take 0.[address] (ROCALTROL) 7-26 [facility] MCG 12:44: mouth 2 Medica l capsule 35 (two) Center times daily. sertraline Yes 25mg QD Take [address] (ZOLOFT) 25 7-26 by mouth [facility] MG tablet 12:44: daily. Medica l 35 [place] furosemide Yes 40mg QD Take [address] (LASIX) 40 7-26 by [facility] tablet 12:44: daily. Medica l 35 [place] levothyroxi Yes [id number] 75ug Take 1 Univers ne 75 mcg 2-13 tablet by ity o f tablet 00:00: mouth [place] 00 every Medical morning. [place] levothyroxi Yes [id number] 75ug Take 1 Univers ne 75 mcg 2-13 tablet by ity o f tablet 00:00: mouth [place] 00 every Medical morning. [place] levothyroxi Yes [id number] 75ug Take 1 Univers ne 75 mcg 2-13 tablet by ity o f tablet 00:00: mouth [place] 00 every Medical morning. [place] levothyroxi Yes [id number] 75ug Take 1 Univers ne 75 mcg 2-13 tablet by ity o f tablet 00:00: mouth [place] 00 every Medical morning. [place] levothyroxi Yes [id number] 75ug Take 1 Univers ne 75 mcg 2-13 tablet by ity o f tablet 00:00: mouth [place] 00 every Medical morning. [place] levothyroxi 2018-0 Yes [id number] 75ug Take 1 Univers ne 75 mcg 2-13 tablet by ity o f tablet 00:00: mouth [place] 00 every Medical morning. Branch levothyroxi 2017-0 Yes [id number] 75ug Take 1 Univers ne 75 mcg 2-13 tablet by ity o f tablet 00:00: mouth [place] 00 every Medical morning. Branch levothyroxi 2017-0 Yes [id number] 75ug Take 1 Univers ne 75 mcg 2-13 tablet by ity o f tablet 00:00: mouth [place] 00 every Medical morning. Branch levothyroxi 2017-0 Yes [id number] 75ug Take 1 Univers ne 75 mcg 2-13 tablet by ity o f tablet 00:00: mouth [place] 00 every Medical morning. Branch levothyroxi 2017-0 Yes [id number] 75ug Take 1 Univers ne 75 mcg 2-13 tablet by ity o f tablet 00:00: mouth [place] 00 every Medical morning. Branch levothyroxi 2017-0 Yes [id number] 75ug Take 1 Univers ne 75 mcg 2-13 tablet by ity o f tablet 00:00: mouth [place] 00 every Medical morning. Branch levothyroxi 0 Yes [id number] 75ug Take 1 Univers ne 75 mcg 2-13 tablet by ity o f tablet 00:00: mouth [place] 00 every Medical morning. Branch levothyroxi 0 Yes [id number] 75ug Take 1 Univers ne 75 mcg 2-13 tablet by ity o f tablet 00:00: mouth [place] 00 every Medical morning. Branch levothyroxi 2017-0 Yes [id number] 75ug Take 1 Univers ne 75 mcg 2-13 tablet by ity o f tablet 00:00: mouth [place] 00 every Medical morning. Branch levothyroxi 0 Yes [id number] 75ug Take 1 Univers ne 75 mcg 2-13 tablet by ity o f tablet 00:00: mouth [place] 00 every Medical morning. Branch levothyroxi 2017-0 Yes [id number] 75ug Take 1 Univers ne 75 mcg 2-13 tablet by ity o f tablet 00:00: mouth [place] 00 every Medical morning. Branch levothyroxi 0 Yes [id number] 75ug Take 1 Univers ne 75 mcg 2-13 tablet by ity o f tablet 00:00: mouth [place] 00 every Medical morning. [place] CALCITRIOL 2017- Yes [id number] TAKE ONE Univers 0.25 mcg 2-04 CAPSULE BY ity o f capsule 00:00: MOUTH [place] 00 TWICE A Medical DAY Branch CALCITRIOL 2017 Yes [id number] TAKE ONE Univers 0.25 mcg 2-04 CAPSULE BY ity o f capsule 00:00: MOUTH [place] 00 TWICE A Medical DAY Branch CALCITRIOL 2016-04 Yes [id number] TAKE ONE Univers 0.25 mcg 2-04 CAPSULE BY ity o f capsule 00:00: MOUTH [place] 00 TWICE A Medical DAY Branch CALCITRIOL 2016-04 Yes [id number] TAKE ONE Univers 0.25 mcg 2-04 CAPSULE BY ity o f capsule 00:00: MOUTH [place] 00 TWICE A Medical DAY Branch CALCITRIOL 2016-04 Yes [id number] TAKE ONE Univers 0.25 mcg 2-04 CAPSULE BY ity o f capsule 00:00: MOUTH [place] 00 TWICE A Medical DAY Branch CALCITRIOL 2016-04 Yes [id number] TAKE ONE Univers 0.25 mcg 2-04 CAPSULE BY ity o f capsule 00:00: MOUTH [place] 00 TWICE A Medical DAY Branch CALCITRIOL 2016-04 Yes [id number] TAKE ONE Univers 0.25 mcg 2-04 CAPSULE BY ity o f capsule 00:00: MOUTH [place] 00 TWICE A Medical DAY Branch CALCITRIOL 2016-04 Yes [id number] TAKE ONE Univers 0.25 mcg 2-04 CAPSULE BY ity o f capsule 00:00: MOUTH [place] 00 TWICE A Medical DAY Branch CALCITRIOL 2016-04 Yes [id number] TAKE ONE Univers 0.25 mcg 2-04 CAPSULE BY ity o f capsule 00:00: MOUTH [place] 00 TWICE A Medical DAY Branch CALCITRIOL 2016-04 Yes [id number] TAKE ONE Univers 0.25 mcg 2-04 CAPSULE BY ity o f capsule 00:00: MOUTH [place] 00 TWICE A Medical DAY Branch CALCITRIOL 2016-04 Yes [id number] TAKE ONE Univers 0.25 mcg 2-04 CAPSULE BY ity o f capsule 00:00: MOUTH [place] 00 TWICE A Medical DAY Branch CALCITRIOL 2016-04 Yes [id number] TAKE ONE Univers 0.25 mcg 2-04 CAPSULE BY ity o f capsule 00:00: MOUTH [place] 00 TWICE A Medical DAY Branch CALCITRIOL 2016-04 Yes [id number] TAKE ONE Univers 0.25 mcg 2-04 CAPSULE BY ity o f capsule 00:00: MOUTH [place] 00 TWICE A Medical DAY Branch CALCITRIOL 2016-04 Yes [id number] TAKE ONE Univers 0.25 mcg 2-04 CAPSULE BY ity o f capsule 00:00: MOUTH [place] 00 TWICE A Medical DAY Branch CALCITRIOL 2016-04 Yes [id number] TAKE ONE Univers 0.25 mcg 2-04 CAPSULE BY ity o f capsule 00:00: MOUTH [place] 00 TWICE A Medical DAY Branch CALCITRIOL 2016-04 Yes [id number] TAKE ONE Univers 0.25 mcg 2-04 CAPSULE BY ity o f capsule 00:00: MOUTH [place] 00 TWICE A Medical DAY Branch CALCITRIOL 2016-04 Yes [id number] TAKE ONE Univers 0.25 mcg 2-04 CAPSULE BY ity o f capsule 00:00: MOUTH [place] 00 TWICE A Medical DAY Branch calcium 2015-04 Yes 1000mg Take 2 Univer s carbonate 1-30 tablets by ity of (OSCAL-500) 00:00: mouth 3 [place] as 500 mg 00 (three) Medical calcium times Branch (1,250 mg) daily with tablet meals. calcium 2015-04 Yes 1000mg Take 2 Univer s carbonate 1-30 tablets by ity of (OSCAL-500) 00:00: mouth 3 [place] as 500 mg 00 (three) Medical calcium times Branch (1,250 mg) daily with tablet meals. calcium 2015-04 Yes 1000mg Take 2 Univer s carbonate 1-30 tablets by ity of (OSCAL-500) 00:00: mouth 3 [place] 500 mg 00 (three) Medical calcium times Branch (1,250 mg) daily with tablet meals. calcium 2015-04 Yes 1000mg Take 2 Univer s carbonate 1-30 tablets by ity of (OSCAL-500) 00:00: mouth 3 [place] as 500 mg 00 (three) Medical calcium times Branch (1,250 mg) daily with tablet meals. calcium 2015-04 Yes 1000mg Take 2 Univer s carbonate 1-30 tablets by ity of (OSCAL-500) 00:00: mouth 3 [place] as 500 mg 00 (three) Medical calcium times Branch (1,250 mg) daily with tablet meals. calcium 2015-04 Yes 1000mg Take 2 Univer s carbonate 1-30 tablets by ity of (OSCAL-500) 00:00: mouth 3 [place] 500 mg 00 (three) Medical calcium times Branch (1,250 mg) daily with tablet meals. calcium 2015-04 Yes 1000mg Take 2 Univer s carbonate 1-30 tablets by ity of (OSCAL-500) 00:00: mouth 3 [place] 500 mg 00 (three) Medical calcium times Branch (1,250 mg) daily with tablet meals. calcium 2015-04 Yes 1000mg Take 2 Univer s carbonate 1-30 tablets by ity of (OSCAL-500) 00:00: mouth 3 [place] 500 mg 00 (three) Medical calcium times Branch (1,250 mg) daily with tablet meals. calcium 2015-04 Yes 1000mg Take 2 Univer s carbonate 1-30 tablets by ity of (OSCAL-500) 00:00: mouth 3 [place] 500 mg 00 (three) Medical calcium times Branch (1,250 mg) daily with tablet meals. calcium 2015-04 Yes 1000mg Take 2 Univer s carbonate 1-30 tablets by ity of (OSCAL-500) 00:00: mouth 3 [place] 500 mg 00 (three) Medical calcium times Branch (1,250 mg) daily with tablet meals. calcium 2015-04 Yes 1000mg Take 2 Univer s carbonate 1-30 tablets by ity of (OSCAL-500) 00:00: mouth 3 [place] 500 mg 00 (three) Medical calcium times Branch (1,250 mg) daily with tablet meals. calcium 2015-04 Yes 1000mg Take 2 Univer s carbonate 1-30 tablets by ity of (OSCAL-500) 00:00: mouth 3 [place] 500 mg 00 (three) Medical calcium times Branch (1,250 mg) daily with tablet meals. calcium 2015-04 Yes 1000mg Take 2 Univer s carbonate 1-30 tablets by ity of (OSCAL-500) 00:00: mouth 3 [place] 500 mg 00 (three) Medical calcium times Branch (1,250 mg) daily with tablet meals. calcium 2015-04 Yes 1000mg Take 2 Univer s carbonate 1-30 tablets by ity of (OSCAL-500) 00:00: mouth 3 [place] 500 mg 00 (three) Medical calcium times Branch (1,250 mg) daily with tablet meals. calcium 2015- Yes 1000mg Take 2 Univer s carbonate 1-30 tablets by ity of (OSCAL-500) 00:00: mouth 3 [place] as 500 mg 00 (three) Medical calcium times Branch (1,250 mg) daily with tablet meals. calcium 2015-04 Yes 1000mg Take 2 Univer s carbonate 1-30 tablets by ity of (OSCAL-500) 00:00: mouth 3 [place] 500 mg 00 (three) Medical calcium times Branch (1,250 mg) daily with tablet meals. calcium 2015-04 Yes 1000mg Take 2 Univer s carbonate 1-30 tablets by ity of (OSCAL-500) 00:00: mouth 3 [place] 500 mg 00 (three) Medical calcium times Branch (1,250 mg) daily with tablet meals. ALPRAZolam Yes Univers (XANAX) 8-05 ity of 0.25 mg 00:00: [place] tablet 00 [facility] ALPRAZolam Yes Univers (XANAX) 8-05 ity of 0.25 mg 00:00: [place] tablet 00 [facility] ALPRAZolam Yes Univers (XANAX) 8-05 ity of 0.25 mg 00:00: [place] tablet 00 [facility] ALPRAZolam Yes Univers (XANAX) 8-05 ity of 0.25 mg 00:00: [place] tablet 00 [facility] ALPRAZolam Yes Univers (XANAX) 8-05 ity of 0.25 mg 00:00: [place] tablet 00 [facility] ALPRAZolam Yes Univers (XANAX) 8-05 ity of 0.25 mg 00:00: [place] tablet 00 [facility] ALPRAZolam Yes Univers (XANAX) 8-05 ity of 0.25 mg 00:00: [place] tablet 00 [facility] ALPRAZolam Yes Univers (XANAX) 8-05 ity of 0.25 mg 00:00: [place] tablet 00 [facility] ALPRAZolam Yes Univers (XANAX) 8-05 ity of 0.25 mg 00:00: [place] tablet 00 [facility] ALPRAZolam Yes Univers (XANAX) 8-05 ity of 0.25 mg 00:00: [place] tablet 00 [facility] ALPRAZolam Yes Univers (XANAX) 8-05 ity of 0.25 mg 00:00: [place] tablet 00 [facility] ALPRAZolam Yes Univers (XANAX) 8-05 ity of 0.25 mg 00:00: [place] tablet 00 [facility] ALPRAZolam Yes Univers (XANAX) 8-05 ity of 0.25 mg 00:00: [place] tablet 00 [facility] ALPRAZolam Yes Univers (XANAX) 8-05 ity of 0.25 mg 00:00: [place] tablet [facility] ALPRAZolam 0 Yes Univers (XANAX) 8-05 ity of 0.25 mg 00:00: [place] tablet [facility] ALPRAZolam Yes Univers (XANAX) 8-05 ity of 0.25 mg 00:00: [place] tablet [facility] ALPRAZolam Yes Univers (XANAX) 8-05 ity of 0.25 mg 00:00: [place] tablet [facility] SERTraline Yes Univers (ZOLOFT) 25 7-29 ity of mg tablet 00:00: [place] [facility] SERTraline Yes Univers (ZOLOFT) 25 7-29 ity of mg tablet 00:00: [place] [facility] SERTraline Yes Univers (ZOLOFT) 25 7-29 ity of mg tablet 00:00: [place] [facility] SERTraline 0 Yes Univers (ZOLOFT) 25 7-29 ity of mg tablet 00:00: [place] [facility] SERTraline Yes Univers (ZOLOFT) 25 7-29 ity of mg tablet 00:00: [place] [facility] SERTraline 0 Yes Univers (ZOLOFT) 25 7-29 ity of mg tablet 00:00: [place] [facility] SERTraline 0 Yes Univers (ZOLOFT) 25 7-29 ity of mg tablet 00:00: [place] [facility] SERTraline 20160 Yes Univers (ZOLOFT) 25 7-29 ity of mg tablet 00:00: [place] [facility] SERTraline 0 Yes Univers (ZOLOFT) 25 7-29 ity of mg tablet 00:00: [place] [facility] SERTraline 0 Yes Univers (ZOLOFT) 25 7-29 ity of mg tablet 00:00: [place] [facility] SERTraline 0 Yes Univers (ZOLOFT) 25 7-29 ity of mg tablet 00:00: [place] [facility] SERTraline 0 Yes Univers (ZOLOFT) 25 7-29 ity of mg tablet 00:00: [place] 00 Medical Branch SERTraline Yes Univers (ZOLOFT) 25 7-29 ity of mg tablet 00:00: Medical Branch SERTraline Yes Univers (ZOLOFT) 25 7-29 ity of mg tablet 00:00: Medical Branch SERTraline Yes Univers (ZOLOFT) 25 7-29 ity of mg tablet 00:00: Medical Branch SERTraline Yes Univers (ZOLOFT) 25 7-29 ity of mg tablet 00:00: [place] [facility] SERTraline Yes Univers (ZOLOFT) 25 7-29 ity of mg tablet 00:00: [place] [facility] Vital Signs Vital Name Observation Time Observation Value Comments Source Systolic blood 2019-10-02 18:13:00 105 mm[Hg] Univer sity of pressure [facility] Diastolic blood 2019-10-02 18:13:00 68 mm[Hg] Unive rsity of pressure [facility] Heart rate 2019-10-02 18:13:00 75 /min Universi ty of [facility] Body height 2019-10-02 18:13:00 167.6 cm Universi ty of [facility] Body weight 2019-10-02 18:13:00 88.451 kg stated Universi ty [facility] BMI 2019-10-02 18:13:00 31.47 kg/m2 Universi ty of [facility] Systolic blood 2019-08-27 18:43:00 121 mm[Hg] Univer sity of pressure [facility] Diastolic blood 2019-08-27 18:43:00 78 mm[Hg] Unive rsity of [facility] Heart rate 2019-08-27 18:43:00 66 /min Universi ty of [facility] Body temperature 2019-08-27 18:43:00 35.89 Jennifer Univ ersity of [facility] Respiratory rate 2019-08-27 18:43:00 16 /min Univ ersity of [facility] Body height 2019-08-27 18:43:00 167.6 cm Universi ty of [facility] Body weight 2019-08-27 18:43:00 90.719 kg Universi ty of [facility] BMI 2019-08-27 18:43:00 32.28 kg/m2 Universi ty of [place] [facility] Systolic blood 2019-08-20 19:41:00 134 mm[Hg] Univer sity of pressure [place] [facility] Diastolic blood 2019-08-20 19:41:00 82 mm[Hg] Unive rsity of pressure [facility] Heart rate 2019-08-20 19:41:00 63 /min Universi ty of [facility] Body height 2019-08-20 19:41:00 167.6 cm Universi ty of [place] [facility] Body weight 2019-08-20 19:41:00 90.719 kg Universi ty of [place] [facility] BMI 2019-08-20 19:41:00 32.28 kg/m2 Universi ty of [facility] Systolic blood 2018-11-10 15:26:00 113 mm[Hg] Univer sity of pressure [place] [facility] Diastolic blood 2018-11-10 15:26:00 74 mm[Hg] Unive rsity of pressure [facility] Heart rate 2018-11-10 15:26:00 58 /min Universi ty of [facility] Body temperature 2018-11-10 15:26:00 36.44 Jennifer Univ ersity of [facility] Respiratory rate 2018-11-10 15:26:00 16 /min Univ ersity of [facility] Body weight 2018-11-10 15:26:00 91.627 kg Universi ty of [place] [facility] BMI 2018-11-10 15:26:00 33.61 kg/m2 [facility] Procedures Procedure Date / Time Performed Performing Clinician [facility] e REFERRAL- 2022-12-16 05:01:00 [facility]RESPONSE Name Medical Branch XR ANKLE <3 VW RIGHT 2019-10-02 18:04:31 Adela Smith Univers ity of [facility] XR ANKLE <3 VW RIGHT 2019-08-27 18:50:47 [facility] EXTERNAL PROVIDER 2019-08-21 05:01:00 Doctor Unassigned, No [facility] Name [facility] Branch Encounters Start End Encounter Admission Attending Care Care Encounter Source Date/Time Date/Time Type Type Clinicians Facility Department ID 2022-12-16 2022-12-16 Orders Doctor CHILDS 1.2.840.114 [id number] [facility] 00:00:00 00:00:00 Only Unassigned, BRIONNA [id number] ity of [place] [facility] 4.2.7.2.686 Mykel as [id number] [address] 2020-07-01 2020-07-01 Patient Raul [facility] 1.2.840.114 [id number] Univers 00:00:00 00:00:00 Outreach Jeremie PRIMARY [id number] i ty of [facility] [place] [id number] Me dical 388 [place] 2019-10-03 2019-10-03 [facility] [id number] Univers 00:00:00 00:00:00 Adela Saucedo [facility] [id number] it y of Surgical [id number] [place] as Specialti [id number] Me dical es [address] [facility] 2019-10-02 2019-10-02 [facility] [id number] Univers 13:04:30 23:59:00 ADELA [facility] 2019-10-02 2019-10-02 [facility] [id number] Univers 13:04:00 23:59:00 Encounter Adela Saucedo [facility] [id number] ity of Surgical [id number] [place] as Specialti [phone] Me dical es 8[address] [facility] 2019-10-02 2019-10-02 Office [facility] 1.2.840.114 [id number] Univers 12:50:48 13:05:48 Visit Adela Saucedo [facility] [id number] it y of Surgical [id number] [place] as Specialti [phone] Me dical es [address] [facility] 2019-09-28 2019-09-28 Outpatient [facility] [id number] Univers 09:15:00 09:15:00 [facility] 2019-09-27 2019-09-27 [facility] 1.2.840.114 [id number] Univers 00:00:00 00:00:00 Ariadne [facility] [id number] it y of Surgical 4.2.7.2.686 [place] as Specialti [id number] Me dical es [address] [facility] 2019-08-27 2019-08-27 Outpatient R JESSICA [facility] [id number] Univers 13:50:46 23:59:00 ARIADNE ity of [facility] 2019-08-27 2019-08-27 [facility] 1.2.840.114 [id number] Univers 13:50:00 23:59:00 Encounter Ariadne Noel [facility] [id number] ity of Surgical 4.2.7.2.686 [place] as Specialti [id number] Me dical es 8[address] [facility] 2019-08-27 2019-08-27 [facility] 1.2.840.114 [id number] Univers 13:37:44 13:52:44 Visit [facility] 350.1.13.10 it y of Surgical 4.2.7.2.686 [place] as Specialti [id number] Me dical es [address] [facility] 2019-08-23 2019-08-23 Telephone [facility] 1.2.840.114 [id number] Univers 00:00:00 00:00:00 Ariadne Noel [facility] [id number] it y of Surgical 4.2.7.2.686 [place] as Specialti [phone] Me dical es [address] [facility] 2019-08-21 2019-08-21 Orders Doctor NAZ 1.2.840.114 [id number] Univers 00:00:00 00:00:00 Only Unassigned, BRIONNA 350.1.13.10 ity of [place] [facility] 4.2.7.2.686 Mykel as [id number] [address] 2019-08-20 2019-08-20 [facility] 1.2.840.114 [id number] Univers 13:53:30 15:17:03 Visit [facility] 350.1.13.10 it y of Surgical 4.2.7.2.686 [place] as Specialti [id number] Id dical es [address] [facility] 2019-08-20 2019-08-20 Outpatient R SARAH [facility] [id number] Univers 14:15:00 14:15:00 ADELA ity of [facility] 2019-08-18 2019-08-18 Telephone Jessica [facility] 1.2.840.114 [id number] Univers 00:00:00 00:00:00 Cristy E[place] 350.1.13.10 ity [place] [id number] Id dical nal 198 [facility] 2018-11-10 2018-11-10 Office Varun [facility] 1.2.840.114 [id number] Univers 09:52:22 10:50:00 Visit Naz Ewing 350.1.13.10 i ty of [facility] [place].2.[place] [phone] Id dical nal 377 [facility] Results Test Description Test Time Test Comments Results Result Sourc e Comments XR ANKLE <3 VW 2019-08-27 Xray positioning Univ ersity of RIGHT 19:48:23 was less than [place] Medic al optimal due to a Branch difficulty with the x-ray machine were only able to shoot her x-rays on the wall bulky but they were adequate to reveal that her fracture is nondisplaced FLOW PRA CLASS I AND II 2017-04-08 09:48:00 Test Item Value Reference Range Interpretation Comme nts DATE OF SERUM (BEAKER) (test code = 2289) 237177 SERUM # (BEAKER) (test code = 2290) 642301 FLOW PRA CLASS I AND II (test code = 2421) See Scanned Report AB SPECIFICITY CLASS [id number] 07:35:00 Test Item Value Reference Range Interpretation Comments DATE OF SERUM (BEAKER) (test code = 502064 7816) SERUM # (BEAKER) (test code = 2290) 686260 AB SPECIFICITY CLASS I (BEAKER) (test code = 2429) AB SPECIFICITY CLASS [id number] 07:35:00 Test Item Value Reference Range Interpretation Comments DATE OF SERUM (BEAKER) 519270 (test code = 2289) SERUM # (BEAKER) (test 097289 code = 2290) AB SPECIFICITY CLASS II See Scanned Report (BEAKER) (test code = 2430) FLOW PRA CLASS I AND [id number] 11:13:00 Test Item Value Reference Range Interpretation Comments DATE OF SERUM (BEAKER) 461483 (test code = 2289) SERUM # (BEAKER) (test 988805 code = 2290) FLOW PRA CLASS I AND II See Scanned Report (test code = 2421) AB SPECIFICITY CLASS [id number] 11:57:00 Test Item Value Reference Range Interpretation Comments DATE OF SERUM (BEAKER) 646442 (test code = 2289) SERUM # (BEAKER) (test 893528 code = 2290) AB SPECIFICITY CLASS II See Scanned Report (BEAKER) (test code = 2430) AB SPECIFICITY CLASS [id number] 11:57:00 Test Item Value Reference Range Interpretation Comments DATE OF SERUM (BEAKER) (test code = 357478 3725) SERUM # (BEAKER) (test code = 2290) 420294 AB SPECIFICITY CLASS I (BEAKER) (test code = 2429) OCCULT BLOOD, [id number] 01:23:00 Test Item Value Reference Range Interpretation Comments FECAL OCCULT BLOOD (BEAKER) (test Negative Negative code = 618) OCCULT BLOOD, [id number] 01:22:00 Test Item Value Reference Range Interpretation Comments FECAL OCCULT BLOOD (BEAKER) (test Negative Negative code = 618) FLOW PRA CLASS I AND [id number] 22:58:00 Test Item Value Reference Range Interpretation Comments DATE OF SERUM (BEAKER) 929625 (test code = 2289) SERUM # (BEAKER) (test 258967 code = 2290) FLOW PRA CLASS I AND II See Scanned Report (test code = 2421) HLA [id number] 20:21:00 Test Item Value Reference Range Interpretation Comments HLA RESULT (BEAKER) (test See Scanned Report code = 2311) HLA-A AG1 (BEAKER) (test code = 2521) HLA-A AG2 (BEAKER) (test code = 2522) HLA-B AG1 (BEAKER) (test code = 2523) HLA-B AG2 (BEAKER) (test code = 2524) HLA-C AG1 (BEAKER) (test code = 2525) HLA-C AG2 (BEAKER) (test code = 2526) HLA-DR AG1 (BEAKER) (test code = 2518) HLA-DR AG2 (BEAKER) (test code = 2519) HLA-DQ AG1 (BEAKER) (test code = 8414) HLA-DQ AG2 (BEAKER) (test code = 1495) HLA-DRW (BEAKER) (test code = 3443) VARICELLA ZOSTER ANTIBODY, [id number] 14:57:00 Test Item Value Reference Range Interpretation Comments VARICELLA ZOSTER IGG (AL) (BEAKER) 2.0 Al (test code = 3197) VARICELLA ZOSTER RESULT INTERPRETATIONS: <=0.8 Al Nonreactive: Presumed non- immune to VZV 0.9-1.0Al Equivocal >=1.1 Al Reactive: Presumed immune to VZV CYTOMEGALOVIRUS ANTIBODY, [id number] 14:54:00 Test Item Value Reference Range Interpretation Comments CYTOMEGALOVIRUS IGG ANTIBODY Positive (BEAKER) (test code = 790) CYTOMEGALOVIRUS ANTIBODY, [id number] 14:54:00 Test Item Value Reference Range Interpretation Comments CYTOMEGALOVIRUS IGM ANTIBODY Negative (BEAKER) (test code = 816) EBV-VCA ANTIBODY, [id number] 14:54:00 Test Item Value Reference Range Interpretation Comments [place] VCA IGG (BEAKER) (test Positive code = 983) EBV-VCA ANTIBODY, [id number] 14:54:00 Test Item Value Reference Range Interpretation Comments [place] VCA IGM (BEAKER) (test Negative code = 984) [id number] 12:57:00 Test Item Value Reference Range Interpretation Comments RPR SCREEN (BEAKER) (test code = Nonreactive Nonreactive 420) URINE [id number] 12:18:00 Test Item Value Reference Range Interpretation Comments CULTURE (BEAKER) (test code = 1095) No growth HEMOGLOBIN [id number] 11:58:00 Test Item Value Reference Range Interpretation Comments HEMOGLOBIN A1C (BEAKER) (test code = 5.2 % 4.3-6.1 368) HEPATITIS B SURFACE [id number] 10:42:00 Test Item Value Reference Range Interpretation Comments HEPATITIS B SURFACE ANTIBODY < mIU/mL <8.0 (BEAKER) (test code = 647) HEPATITIS B SURFACE [id number] 10:38:00 Test Item Value Reference Range Interpretation Comments HEPATITIS B SURFACE ANTIGEN (2) Nonreactive Nonreactive (BEAKER) (test code = 2585) HEPATITIS B CORE ANTIBODY, [id number] 10:38:00 Test Item Value Reference Range Interpretation Comments HEPATITIS B CORE IGM ANTIBODY Nonreactive Nonreactive (BEAKER) (test code = 645) HEPATITIS C [id number] 10:38:00 Test Item Value Reference Range Interpretation Comments HEPATITIS C ANTIBODY (BEAKER) Nonreactive Nonreactive (test code = 367) HIV-1 ANTIGEN WITH HIV-1/2 [id number] 10:38:00 Test Item Value Reference Range Interpretation Comments HIV-1 ANTIGEN WITH HIV 1\T\2 Nonreactive Nonreactive ANTIBODY (2) (BEAKER) (test code = 2586) COMPREHENSIVE METABOLIC [id number] 10:32:00 Test Item Value Reference Range Interpretation Comments TOTAL PROTEIN 7.9 gm/dL 6.0-8.3 (BEAKER) (test code = 770) ALBUMIN (BEAKER) 4.1 g/dL 3.5-5.0 (test code = 1145) ALKALINE PHOSPHATASE 70 U/L 40-150 (BEAKER) (test code = 346) BILIRUBIN TOTAL 0.5 mg/dL 0.2-1.2 (BEAKER) (test code = 377) SODIUM (BEAKER) (test 139 meq/L 136-145 code = 381) POTASSIUM (BEAKER) 3.9 meq/L 3.5-5.1 (test code = 379) CHLORIDE (BEAKER) 101 meq/L 98-107 (test code = 382) CO2 (BEAKER) (test 26 meq/L 22-29 code = 355) BLOOD UREA NITROGEN 21 mg/dL 7-21 (BEAKER) (test code = 354) CREATININE (BEAKER) 3.93 mg/dL 0.57-1.25 H (test code = 358) GLUCOSE RANDOM 85 mg/dL 70-105 (BEAKER) (test code = 652) CALCIUM (BEAKER) 9.3 mg/dL 8.4-10.2 (test code = 697) AST (SGOT) (BEAKER) 22 U/L 5-34 (test code = 353) ALT (SGPT) (BEAKER) 14 U/L 6-55 (test code = 347) EGFR (BEAKER) (test 12 mL/min/1.73 ESTIMA KAREN GFR IS code = 1092) sq m NOT ACCURATE CREATININE CLEARANCE IN PREDICTING GLOMERULAR FILTRATION RATE . ESTIMATED GFR I S NOT APPLICABLE FOR DIALYSIS PATIEN TS. URINALYSIS W/ [id number] 10:22:00 Test Item Value Reference Range Interpretation Comments COLOR (BEAKER) (test code = 470) Light Yellow CLARITY (BEAKER) (test code = Clear 469) SPECIFIC GRAVITY UA (BEAKER) 1.003 1.001-1.035 (test code = 468) PH UA (BEAKER) (test code = 467) 7.5 5.0-8.0 PROTEIN UA (BEAKER) (test code = 30 mg/dL Negative A 464) GLUCOSE UA (BEAKER) (test code = Negative Negative 365) KETONES UA (BEAKER) (test code = Negative Negative 371) BILIRUBIN UA (BEAKER) (test code Negative Negative = 462) BLOOD UA (BEAKER) (test code = Negative Negative 461) NITRITE UA (BEAKER) (test code = Negative Negative 465) LEUKOCYTE ESTERASE UA (BEAKER) Negative Negative (test code = 466) UROBILINOGEN UA (BEAKER) (test 0.2 mg/dL 0.2-1.0 code = 463) RBC UA (BEAKER) (test code = 0 /HPF 519) WBC UA (BEAKER) (test code = < /HPF 520) MUCUS (BEAKER) (test code = Rare 1574) SQUAMOUS EPITHELIAL (BEAKER) < /HPF (test code = 516) SOURCE(BEAKER) (test code = 2799) URIC [id number] 10:18:00 Test Item Value Reference Range Interpretation Comments URIC ACID (BEAKER) (test code = 4.0 mg/dL 2.6-7.2 773) [id number] 10:18:00 Test Item Value Reference Range Interpretation Comments PHOSPHORUS (BEAKER) (test code = 4.1 mg/dL 2.3-4.7 604) LIPID [id number] 10:18:00 Test Item Value Reference Range Interpretation Comments TRIGLYCERIDES (BEAKER) (test code = 128 mg/dL 540) CHOLESTEROL (BEAKER) (test code = 164 mg/dL 631) HDL CHOLESTEROL (BEAKER) (test code 52 mg/dL = 976) LDL CHOLESTEROL CALCULATED (BEAKER) 86 mg/dL (test code = 633) Triglyceride Reference Range: Low Risk <150 Borderline 150-199 High Risk 200- 499 Very High Risk >=500Cholesterol Reference Range: Low Risk <200 Borderline 200-239 High Risk >240HDL Cholesterol Reference Range: Low Risk >=60 High Risk <40LDL Cholesterol Reference Range: Optimal <100 Near Optimal 100-129 Borderline 130-159 High 160-189 Very High >=190GAMMA GLUTAMYL TRANSFERASE (GGT)2016-11-24 10:18:00 Test Item Value Reference Range Interpretation Comments GAMMA GLUTAMYL TRANSFERASE (BEAKER) 18 U/L 9-64 (test code = 364) LACTATE DEHYDROGENASE (LDH)2016-11-24 10:18:00 Test Item Value Reference Range Interpretation Comments LACTATE DEHYDROGENASE (BEAKER) (test 269 U/L 125-220 H code = 635) PTH, [id number] 10:17:00 Test Item Value Reference Range Interpretation Comments PARATHYROID HORMONE INTACT (BEAKER) 4.5 pg/mL 8.5-72.5 L (test code = 577) Effective 03/05/2014: Reference Range ChangeNew: 8.5-72.5 Previous: 15.0-90.0 [id number] 10:05:00 Test Item Value Reference Range Interpretation Comments PROTIME (BEAKER) (test code = 12.9 seconds 11.7-14.7 759) INR (BEAKER) (test code = 370) 1.0 <=5.9 PARTIAL THROMBOPLASTIN TIME 34.2 seconds 22.5-36.0 (BEAKER) (test code = 760) RECOMMENDED COUMADIN/WARFARIN INR THERAPY RANGESSTANDARD DOSE: 2.0 - 3.0 Includes: PROPHYLAXIS for venous thrombosis, systemic embolization; TREATMENT for venous thrombosis and/or pulmonary embolus.HIGH RISK: Target INR is 2.5-3.5 for patients with mechanical heart valves.CBC W/PLT COUNT & AUTO [id number] 09:56:00 Test Item Value Reference Range Interpretation Comments WHITE BLOOD CELL COUNT (BEAKER) 5.9 K/ L 3.5-10.5 (test code = 775) RED BLOOD CELL COUNT (BEAKER) 3.42 M/ L 3.93-5.22 L (test code = 761) HEMOGLOBIN (BEAKER) (test code = 11.8 GM/DL 11.2-15.7 410) HEMATOCRIT (BEAKER) (test code = 33.7 % 34.1-44.9 L 411) MEAN CORPUSCULAR VOLUME (BEAKER) 98.5 fL 79.4-94.8 H (test code = 753) MEAN CORPUSCULAR HEMOGLOBIN 34.5 pg 25.6-32.2 H (BEAKER) (test code = 751) MEAN CORPUSCULAR HEMOGLOBIN CONC 35.0 GM/DL 32.2-35.5 (BEAKER) (test code = 752) RED CELL DISTRIBUTION WIDTH 14.5 % 11.7-14.4 H (BEAKER) (test code = 412) PLATELET COUNT (BEAKER) (test 175 K/CU MM 150-450 code = 756) MEAN PLATELET VOLUME (BEAKER) 10.3 fL 9.4-12.3 (test code = 754) NUCLEATED RED BLOOD CELLS 0 /100 WBC 0-0 (BEAKER) (test code = 413) NEUTROPHILS RELATIVE PERCENT 63 % (BEAKER) (test code = 429) LYMPHOCYTES RELATIVE PERCENT 27 % (BEAKER) (test code = 430) MONOCYTES RELATIVE PERCENT 8 % (BEAKER) (test code = 431) EOSINOPHILS RELATIVE PERCENT 2 % (BEAKER) (test code = 432) BASOPHILS RELATIVE PERCENT 1 % (BEAKER) (test code = 437) NEUTROPHILS ABSOLUTE COUNT 3.68 K/ L 1.56-6.13 (BEAKER) (test code = 670) LYMPHOCYTES ABSOLUTE COUNT 1.55 K/ L 1.18-3.74 (BEAKER) (test code = 414) MONOCYTES ABSOLUTE COUNT (BEAKER) 0.47 K/ L 0.24-0.36 H (test code = 415) EOSINOPHILS ABSOLUTE COUNT 0.10 K/ L 0.04-0.36 (BEAKER) (test code = 416) BASOPHILS ABSOLUTE COUNT (BEAKER) 0.03 K/ L 0.01-0.08 (test code = 417) IMMATURE GRANULOCYTES-RELATIVE 0 % 0-1 PERCENT (BEAKER) (test code = 2171)
[2022-12-20] MEDS ORDERED: PROMETHAZINE INJ 25 MG/ML AMP ONE (12:19)
[2022-12-20 12:45] LABS: Absolute Lymphocytes (CBC) 0.6 K/uL (0.7-4.9); Hematocrit 39.3 % (36.0-45.0); Lymphocytes % 16.1 % (15.3-44.8); MCV 93.2 fL (80-100); MPV 8.5 fL (7.6-11.3); Platelets 165 thou/uL (152-406); RBC Red Blood Cell Count 4.22 M/uL (3.86-4.86)
[2022-12-20 12:47] LABS: Protime INR 1.05
--- NOTE | 2022-12-20 12:47 | RAD REPORT ---
EXAM DESCRIPTION: [facility] Single View12/20/2022 12:30 pm CLINICAL HISTORY: sob COMPARISON: 2021 FINDINGS: The lungs are hyperaerated. The lungs appear clear of acute infiltrate. The heart is normal size IMPRESSION: No acute abnormalities displayed
[2022-12-20 13:07] LABS: Albumin 3.4 g/dL (3.4-5.0); Bilirubin Direct 0.2 mg/dL (0-0.2); Bilirubin Indirect, Calculated 0.2 mg/dL (0.2-0.8); Bilirubin Total 0.4 mg/dL (0.2-1.0); Magnesium 2.1 mg/dL (1.6-2.4); Potassium 3.7 mEq/L (3.5-5.1); Troponin High Sensitivity 16.8 pg/mL (<58.9)
[2022-12-20] MEDS ORDERED: NA CHLORIDE 0.9% 500 ML ONE (13:33)
--- NOTE | 2022-12-20 15:40 | ER ---
Nurse's Notes [facility] Name: Adrianne Bond Age: 57 yrs Sex: Female : 1965 Arrival Date: 12/20/2022 Time: 11:49 Bed 18 Private MD: Diagnosis: SARS-associated coronavirus as the cause of diseases classified elsewhere;Dehydration Presentation: 12/20 12:07 Chief complaint: Patient states: Had covid 2 weeks ago, reports N/V/D x 2 days. jl7 Coronavirus screen: At this time, the client does not indicate any symptoms associated with coronavirus-19. Ebola Screen: No symptoms or risks identified at this time. Initial Sepsis Screen: Does the patient meet any 2 criteria? No. Patient's initial sepsis screen is negative. Does the patient have a suspected source of infection? No. Patient's initial sepsis screen is negative. Risk Assessment: Do you want to hurt yourself or someone else? Patient reports no desire to harm self or others. Onset of symptoms is unknown. 12:07 Method Of Arrival: Wheelchair [facility] 12:07 Acuity: TONO 3 jl7 Triage Assessment: 12:08 General: Appears in no apparent distress. uncomfortable, Behavior is calm, cooperative, jl7 appropriate for age. Pain: Denies pain. GI: Reports diarrhea, nausea, vomiting. Historical: - Allergies: 12:08 tramadol; jl7 - PMHx: 12:08 hemodialysis; Hypertension; Hypothyroidism; KIDNEY DISEASE STAGE 3; stage 5 as of 7 ; PERITONEAL DIALYSIS; - Immunization history:: Adult Immunizations unknown. - Social history:: Smoking status: Reported history of juuling and/or vaping. Screenin:50 [facility] ED Fall Risk Assessment (Adult) History of falling in the last 3 months, ph including since admission No falls in past 3 months (0 pts) Confusion or Disorientation No (0 pts) Intoxicated or Sedated No (0 pts) Impaired Gait No (0 pts) Mobility Assist Device Used No (0 pt) Altered Elimination No (0 pt). Abuse screen: Denies threats or abuse. Denies injuries from another. Nutritional screening: No deficits noted. Tuberculosis screening: No symptoms or risk factors identified. Assessment: 13:00 General: Appears in no apparent distress. uncomfortable, Behavior is calm, cooperative, ph appropriate for age. Pain: Denies pain. Neuro: Level of Consciousness is awake, alert, obeys commands, Oriented to person, place, time, situation, Reports weakness. Cardiovascular: Capillary refill < 3 seconds in bilateral fingers Patient's skin is warm and dry. Respiratory: Airway is patent Respiratory effort is even, unlabored. GI: Abdomen is non-distended, Reports diarrhea, nausea, vomiting, Patient currently denies abdominal pain. Derm: Skin is pink, warm \T\ dry. Vital Signs: 12:07 BP 126 / 71; Pulse 60; Resp 17; Temp 98.1; Pulse Ox 100% ; Weight 99.79 kg; Pain 0/10; jl7 13:15 BP 120 / 73; Pulse 54; Resp 18; Pulse Ox 98% on R/A; ph 14:46 BP 115 / 77; Pulse 53; Resp 18; Temp 97.5; Pulse Ox 100% on R/A; ph 16:00 BP 118 / 78; Pulse 56; Resp 18; Temp 97.9; Pulse Ox 99% on R/A; ph 12:07 Pain Scale: Adult jl7 ED Course: 11:51 Patient arrived in ED. rg4 11:52 [facility] snw 11:52 Leonardo Jackson MD is Attending Physician. snw 12:01 Suzanne Caban, RN is Primary Nurse. ph 12:08 Triage completed. jl7 12:08 Arm band placed on right wrist. jl7 12:32 XRAY Chest (1 view) In Process Unspecified. EDMS 12:50 Basic Metabolic Panel Sent. ph 12:50 LFT's Sent. ph 12:50 Magnesium Sent. ph 12:50 NT PRO-BNP Sent. ph 12:50 Troponin HS Sent. ph 12:50 SARS-COV-2 RT PCR Sent. ph 13:15 Patient has correct armband on for positive identification. Bed in low position. Call ph light in reach. Side rails up X 1. Pulse ox on. NIBP on. Door closed. Noise minimized. Warm blanket given. 16:00 No provider procedures requiring assistance completed. IV discontinued, intact, ph bleeding controlled, No redness/swelling at site. Pressure dressing applied. Administered Medications: 12:49 Drug: Promethazine IM 25 mg Route: IM; Site: right deltoid; ph 13:30 Follow up: Response: No adverse reaction ph 13:53 Drug: NS 0.9% IV 500 ml Route: IV; Rate: bolus; Site: right antecubital; ph 14:30 Follow up: IV Status: Completed infusion ph Medication: 13:15 VIS not applicable for this client. ph Outcome: 15:39 Discharge ordered by MD. parikh 16:00 Discharged to home with family. ph 16:00 Condition: good 16:00 Discharge instructions given to patient, Instructed on discharge instructions, follow up and referral plans. medication usage, Demonstrated understanding of instructions, follow-up care, medications, Prescriptions given X 1. 16:00 Patient left the ED. ph Signatures: Dispatcher [employer] EDMS Tram Cruz, MANAGER OF CORPORATE-C MANAGER OF CORPORATE-Haleyw Suzanne Caban, RN RN Kassie Moody4 Francesco Ruiz RN RN jl7
--- NOTE | 2022-12-20 15:40 | EDPHYS ---
Physician Documentation [facility] Name: Adrianne Bond Age: 57 yrs Sex: Female : 1965 Arrival Date: 12/20/2022 Time: 11:49 Bed 18 Private MD: ED Physician Leonardo Jackson HPI: 12/20 12:08 This 57 yrs old Female presents to ER via Unassigned with complaints of snw Vomiting/Diarrhea. 12:08 The patient presents to the emergency department with nausea, vomiting, diarrhea. snw Onset: The symptoms/episode began/occurred acutely. Possible causes: unknown. Associated signs and symptoms: Pertinent positives: diarrhea, nausea, vomiting, sob. Severity of symptoms: At their worst the symptoms were moderate. It is unknown whether or not the patient has had similar symptoms in the past. It is unknown whether or not the patient has recently seen a physician. Historical: - Allergies: 12:08 tramadol; jl - PMHx: 12:08 hemodialysis; Hypertension; Hypothyroidism; KIDNEY DISEASE STAGE 3; stage 5 as of ; PERITONEAL DIALYSIS; - Immunization history:: Adult Immunizations unknown. - Social history:: Smoking status: Reported history of juuling and/or vaping. ROS: 12:07 Eyes: Negative for injury, pain, redness, and discharge, ENT: Negative for injury, snw pain, and discharge, Neck: Negative for injury, pain, and swelling, Cardiovascular: Negative for chest pain, palpitations, and edema, Respiratory: Negative for shortness of breath, cough, wheezing, and pleuritic chest pain, Back: Negative for injury and pain, : Negative for injury, bleeding, discharge, and swelling. 12:07 MS/Extremity: Negative for injury and deformity, Skin: Negative for injury, rash, and discoloration, Neuro: Negative for headache, weakness, numbness, tingling, and seizure, Psych: Negative for depression, anxiety, suicide ideation, homicidal ideation, and hallucinations. 12:07 Constitutional: Positive for body aches, malaise, poor PO intake. 12:07 Abdomen/GI: Positive for nausea, vomiting, and diarrhea. Exam: 12:05 Head/Face: Normocephalic, atraumatic. Eyes: Pupils equal round and reactive to light, snw extra-ocular motions intact. Lids and lashes normal. Conjunctiva and sclera are non-icteric and not injected. Cornea within normal limits. Periorbital areas with no swelling, redness, or edema. 12:05 Neck: Trachea midline, no thyromegaly or masses palpated, and no cervical lymphadenopathy. Supple, full range of motion without nuchal rigidity, or vertebral point tenderness. No Meningismus. Chest/axilla: Normal chest wall appearance and motion. Nontender with no deformity. No lesions are appreciated. 12:05 Back: No spinal tenderness. No costovertebral tenderness. Full range of motion. Skin: Warm, dry with normal turgor. Normal color with no rashes, no lesions, and no evidence of cellulitis. MS/ Extremity: Pulses equal, no cyanosis. Neurovascular intact. Full, normal range of motion. Neuro: Awake and alert, GCS 15, oriented to person, place, time, and situation. Cranial nerves II-XII grossly intact. Motor strength 5/5 in all extremities. Sensory grossly intact. Cerebellar exam normal. Normal gait. Psych: Awake, alert, with orientation to person, place and time. Behavior, mood, and affect are within normal limits. 12:05 ENT: Mouth: Oral mucosa: dry. 12:05 Cardiovascular: Rate: tachycardic. 12:05 Respiratory: the patient does not display signs of respiratory distress, Respirations: shallow respirations, tachypnea, Breath sounds: are clear throughout. 12:05 Abdomen/GI: Inspection: distension, that is moderate, Bowel sounds: normal, peritoneal dialysis, last done last night. Vital Signs: 12:07 BP 126 / 71; Pulse 60; Resp 17; Temp 98.1; Pulse Ox 100% ; Weight 99.79 kg; Pain 0/10; jl7 13:15 BP 120 / 73; Pulse 54; Resp 18; Pulse Ox 98% on R/A; ph 14:46 BP 115 / 77; Pulse 53; Resp 18; Temp 97.5; Pulse Ox 100% on R/A; ph 16:00 BP 118 / 78; Pulse 56; Resp 18; Temp 97.9; Pulse Ox 99% on R/A; ph 12:07 Pain Scale: Adult jl7 MDM: 12:01 Patient medically screened. snw 15:40 Differential diagnosis: Nonspecific abd pain, gastritis, viral gastroenteritis, viral snw syndrome. Data reviewed: vital signs, nurses notes, lab test result(s). I considered the following discharge prescriptions or medication management in the emergency department Medications were administered in the Emergency Department. See MAR. Historians other than the Patient: Spouse/Significant Other: . Counseling: I had a detailed discussion with the patient and/or guardian regarding the historical points, exam findings, and any diagnostic results supporting the discharge/admit diagnosis, lab results, radiology results, the need for outpatient follow up, for definitive care, to return to the emergency department if symptoms worsen or persist or if there are any questions or concerns that arise at home. Special discussion: Based on the patient's Hx, exam, and Dx evaluation, there is no indication for emergent surgery or inpatient Tx. It is understood by the patient/guardian that if the Sx's persist or worsen they need to return immediately for re-evaluation. Based on the history and exam findings, there is no indication for further emergent testing or inpatient evaluation. I discussed with the patient/guardian the need to see the qc tech for further evaluation of the symptoms. 12/20 12:05 Order name: Basic Metabolic Panel; Complete Time: 13:12 snw 12/20 12:05 Order name: CBC with Diff; Complete Time: 12:46 snw 12/20 12:05 Order name: LFT's; Complete Time: 13:12 snw 12/20 12:05 Order name: Magnesium; Complete Time: 13:12 snw 12/20 12:05 Order name: NT PRO-BNP; Complete Time: 13:12 snw 12/20 12:05 Order name: PT-INR; Complete Time: 12:54 snw 12/20 12:05 Order name: Troponin HS; Complete Time: 13:12 snw 12/20 12:05 Order name: SARS-COV-2 RT PCR; Complete Time: 13:53 snw 12/20 12:05 Order name: XRAY Chest (1 view); Complete Time: 12:54 snw 12/20 12:05 Order name: EKG; Complete Time: 12:06 snw 12/20 12:05 Order name: Cardiac monitoring; Complete Time: 12:49 snw 12/20 12:05 Order name: EKG - Nurse/Tech; Complete Time: 12:49 snw 12/20 12:05 Order name: IV Saline Lock; Complete Time: 12:49 snw 12/20 12:05 Order name: Labs collected and sent; Complete Time: 12:49 snw 12/20 12:05 Order name: O2 Per Protocol; Complete Time: 12:06 snw 12/20 12:05 Order name: O2 Sat Monitoring; Complete Time: 12:06 snw EC:31 Rate is 57 beats/min. Rhythm is regular. No ST changes noted. Clinical impression: snw Sinus bradycardia and low voltage. Administered Medications: 12:49 Drug: Promethazine IM 25 mg Route: IM; Site: right deltoid; ph 13:30 Follow up: Response: No adverse reaction ph 13:53 Drug: NS 0.9% IV 500 ml Route: IV; Rate: bolus; Site: right antecubital; ph 14:30 Follow up: IV Status: Completed infusion ph Disposition: 12:15 Co-signature as Attending Physician, Leonardo Jackson MD I agree with the assessment sp4 and plan of care. I reviewed the patient's care provided by the Advanced Practice Provider and agree with the diagnosis and treatment plan. Disposition Summary: 12/20/22 15:39 Discharge Ordered Location: Home snw Condition: Stable snw Diagnosis - SARS-associated coronavirus as the cause of diseases classified elsewhere snw - Dehydration snw Followup: snw - With: Emergency Department - When: As needed - Reason: Worsening of condition Followup: snw - With: Private Physician - When: 2 - 3 days - Reason: Recheck today's complaints, Continuance of care, Re-evaluation by your physician Discharge Instructions: - Discharge Summary Sheet snw - Dehydration, Adult snw - Rehydration, Adult snw - COVID-19 snw - 10 Things You Can Do to Manage Your COVID-19 Symptoms at Home - [facility] (10/31/2020) snw - COVID-19: Quarantine and Isolation - [facility] (07/15/2021) snw - COVID-19: What to Do If You Are Sick - [facility] (07/07/2021) snw Forms: - Work release form snw - Medication Reconciliation Form snw - Thank You Letter snw - Antibiotic Education snw - Prescription Opioid Use snw - Patient Portal Instructions snw - Leadership Thank You Letter snw Prescriptions: - promethazine 25 mg Oral Tablet - take 1 tablet by ORAL route every 6 hours As needed; 20 tablet; Refills: 0, snw Product Selection Permitted Signatures: Dispatcher [employer] Tram Irizarry FNP-C MACHINE GUIDE BASE WINDER-Haleyw Suzanne Caban, RN RN Francesco Ruiz RN RN jl7 Leonardo Jackson MD MD sp4
[2022-12-20 16:08] VITALS: BP 118/78; TEMP 97.9; O2SAT 99
[2022-12-20] MEDS ORDERED: METOCLOPRAMIDE 10 MG/2mL INJ ONE (17:32)
[2022-12-20] MEDS ORDERED: KETOROLAC 30 MG/ML INJ ONE (17:32)
[2022-12-20] MEDS ORDERED: MORPHINE 4 MG/ML SYR ONE (17:32)
[2022-12-20] MEDS ORDERED: NA CHLORIDE 0.9% 50 ML ONE (17:33)
--- NOTE | 2022-12-21 16:46 | EKG ---
Test Date: 2022-12-20 Test Time: 12:28:36 Contact Center Director: MAL MEASUREMENT RESULTS: Intervals: Rate: 57 [place]: 154 QRSD: 68 QT: 480 QTc: 467 [place]: P: 76 [place]: 154 QRS: 67 T: 89 INTERPRETIVE STATEMENTS: Sinus bradycardia Low voltage QRS Borderline ECG Compared to ECG 01/16/2018 10:07:33 Low QRS voltage now present Sinus rhythm no longer present Electronically Signed On 12-21-22 16:43:33 CDT by Neri Nur
== END 2022-12-20 16:00 | disposition home or self-care (01) ==
LOC: ER 11:49
DX: U07.1 COVID-19 (principal); E86.0 Dehydration; I12.9 Hypertensive chronic kidney disease with stage 1 through stage 4 chronic kidney disease, or unspecified chronic kidney disease; N18.30 Chronic kidney disease, stage 3 unspecified; Z99.2 Dependence on renal dialysis; Z88.5 Allergy status to narcotic agent
CPT/HCPCS: 93005; 85025; 80048; 36415; 83735; 85610; 80076; 84484; 83880; 87635; 71045; 96360; 96372; 99284; J2550; J2765; J7040